=== PATIENT | female | born 1975 | race Caucasian/White ===

== ENCOUNTER 2017-10-27 16:15 | Observation (INO) ==
[2017-10-27] MEDS ORDERED: Nitroglycerin 0.4 MG TAB.SUBL SL ONE (16:23)
[2017-10-27] MEDS ORDERED: Aspirin 81 MG TAB.CHEW PO ONE (16:23)
--- NOTE | 2017-10-27 16:27 | Emergency Department Note ---
Disposition Clinical Impression: Right shoulder pain Disposition: Admitted As Inpatient Condition: Undetermined General Adult HPI - General Chief complaint: ED Back Pain/Injury Stated complaint: Shoulder blade pain Time Seen by Provider: 10/27/17 16:19 - History of Present Illness Pain Scale: 7 - Related Data Home Medications Medication Instructions Recorded Confirmed Cholecalciferol (Vitamin D3) 4,000 unit PO DAILY 02/13/15 10/27/17 [Vitamin D3] Aspirin Enteric Coated [Aspirin EC] 81 mg PO DAILY 09/23/15 10/27/17 SUMAtriptan Succinate [Imitrex] 100 mg PO Q2H PRN 09/29/15 10/27/17 Temazepam [Restoril] 15 mg PO HS PRN 09/29/15 10/27/17 Nitroglycerin [Nitrostat] 0.4 mg SL Q5M PRN 10/05/16 10/27/17 Potassium Citrate [Urocit-K] 20 meq PO BID 10/05/16 10/27/17 Metoprolol Succinate [Toprol Xl] 50 mg PO DAILY 10/27/17 10/27/17 Sertraline [Zoloft] 100 mg PO DAILY 10/27/17 10/27/17 Tramadol HCl [Ultram] 50 mg PO Q8H PRN 10/27/17 10/27/17 Previous Rx's Medication Instructions Recorded Atorvastatin [Lipitor] 40 mg PO HS #30 tablet 04/30/15 Allergies Allergy/AdvReac Type Severity Reaction Status Date / Time Iodinated Contrast- Oral and Allergy Mild Hives Verified 10/05/16 07:56 IV Dye [Iodinated Contrast Media - IV Dye] povidone-iodine Allergy Mild Hives Verified 10/05/16 07:56 [From Betadine] soap [From Betadine] Allergy Mild Hives Verified 10/05/16 07:56 Macrolide Antibiotics Allergy Unknown unknown Verified 10/05/16 07:56 chlorhexidine Allergy Hives Verified 10/05/16 07:56 [From Hibiclens] iodine AdvReac Mild Gastrointestinal Verified 10/05/16 07:56 Upset Past Medical History - Past Medical History Medical history: Reports: myocardial infarction Surgical history: Reports: angioplasty/stent, , cataract, hysterectomy Psychiatric history: Reports: anxiety, depression - Social History Smoking Status: Never smoker Smokeless Tobacco Status: No Alcohol use: Reports: none Drug use: Reports: none Physical Exam - General General appearance: alert Course Vital Signs Temperature 98.4 F 10/27/17 16:16 Pulse Rate 81 10/27/17 16:16 Respiratory Rate 16 10/27/17 16:16 Blood Pressure 136/87 10/27/17 16:16 O2 Sat by Pulse Oximetry 97 10/27/17 16:16 Temperature 98.4 F 10/27/17 16:20 Pulse Rate 80 10/27/17 16:57 Respiratory Rate 16 10/27/17 18:08 Blood Pressure 110/79 10/27/17 18:08 O2 Sat by Pulse Oximetry 97 10/27/17 16:20 Oxygen Delivery Oxygen Delivery Room Air Medical Decision Making - Lab Data Result diagrams: 10/27/17 16:32 10/27/17 16:32 Lab Results 10/27/17 10/27/17 10/27/17 Range/Units 16:32 16:32 16:32 WBC 8.9 (4.3-11.1) K/mcL RBC 4.86 (3.82-4.97) M/mcL Hgb 14.1 (11.5-15.4) g/dL Hct 42.2 (35.3-44.9) % MCV 86.8 (83.0-100.0) fL MCH 29.0 (28.0-33.3) pg MCHC 33.4 (31.6-35.5) g/dL RDW 13.3 (11.5-14.5) % Plt Count 249 (140-400) K/mcL MPV 9.1 L (9.4-12.4) fL Immature Gran % 0.3 (0-4) % Seg Neutrophils % 64.9 % Lymphocytes % 26.5 % Monocytes % 6.5 % Eosinophils % 1.6 % Basophils % 0.2 % Neutrophils # 5.8 (1.6-8.9) K/mcL Lymphocytes # 2.4 (0.6-4.6) K/mcL Monocytes # 0.6 (0.0-1.3) K/mcL Eosinophils # 0.1 (0.0-0.6) K/mcL Basophils # 0.0 (0.0-0.2) K/mcL PT 10.8 (9.4-12.1) Seconds INR 1.0 APTT 34.1 (26.0-36.0) Seconds Sodium 140 (136-145) mEq/L Potassium 3.8 (3.5-5.1) mEq/L Chloride 107 (98-107) mEq/L Carbon Dioxide 26 (23-29) mEq/L BUN 10 (6-20) mg/dL Creatinine 0.77 (0.60-1.20) mg/dL Est GFR ( Amer) > 60 (> 60) Est GFR (Non-Af Amer) > 60 (> 60) BUN/Creatinine Ratio 13 (6-26) Glucose 107 H (70-105) mg/dL Calculated Osmolality 290 (280-300) Calcium 9.2 (8.6-10.3) mg/dL Troponin I < 0.03 (< 0.04) ng/mL Attestation Statement - Attestation Attestation: I examined this patient and my medical decision-making was reviewed with the Resident Physician. I agree with the documented findings, disposition and treatment plan as described except to the extent set forth below. [id number] time provided Patient arrives complaining of scapular pain similar to when she had a previous myocardial infarction requiring stent deployment. She does not appear to any acute distress upon arrival
--- NOTE | 2017-10-27 16:32 | Emergency Department Note ---
Disposition Clinical Impression: Right shoulder pain Qualifiers: Chronicity: acute Qualified Code(s): M25.511 - Pain in right shoulder Disposition: Admitted As Inpatient Condition: Undetermined Referrals: Greyson Andesron DO [Primary Care Provider] - Forms: ED Satisfaction Letter Time of Disposition: 17:29 General Adult HPI - General Chief complaint: ED Back Pain/Injury Stated complaint: Shoulder blade pain Time Seen by Provider: 10/27/17 16:19 Source: patient Mode of arrival: ambulatory Limitations: no limitations Nursing Notes Reviewed: Yes Vital Signs Reviewed: Yes - History of Present Illness HPI Narrative: 42-year old female with history of PR 2 years ago with complaint of right shoulder pain. The patient states that a few days ago she started experiencing a small amount of right shoulder pain. The patient states this progressively got worse to the point today she is having an extreme amount of right shoulder pain very similar to previous PR. She has associated mild dyspnea as well. The patient states this feels identical to her previous PR. The patient is no longer taking Plavix. The patient is taking her metoprolol as well as statin. The patient denies any history of hemoptysis, unilateral leg swelling, history of DVT or PE, recent surgeries. She is resting comfortably in the room but is very concerned because it is so similar to previous PR. Patient denies any trauma or other injuries causing her complaint. Pain Scale: 7 - Related Data Home Medications Medication Instructions Recorded Confirmed Cholecalciferol (Vitamin D3) 4,000 unit PO DAILY 02/13/15 10/05/16 [Vitamin D3] Metoprolol XL (24 HR) Succ [Toprol 50 mg PO HS 02/13/15 10/05/16 XL] Sertraline [Zoloft] 100 mg PO HS 02/13/15 10/05/16 Aspirin Enteric Coated [Aspirin EC] 81 mg PO DAILY 09/23/15 10/05/16 SUMAtriptan Succinate [Imitrex] 100 mg PO Q2H PRN 09/29/15 10/05/16 Temazepam [Restoril] 15 mg PO HS PRN 09/29/15 10/05/16 Nitroglycerin [Nitrostat] 0.4 mg SL Q5M PRN 10/05/16 10/05/16 Potassium Citrate [Urocit-K] 20 meq PO BID 06/13/17 06/13/17 hydrOXYzine HCl [Hydroxyzine HCl] 25 mg PO Q4-6H PRN 10/05/16 10/05/16 predniSONE [PredniSONE] 40 mg PO DAILY 10/05/16 10/05/16 Previous Rx's Medication Instructions Recorded Atorvastatin [Lipitor] 40 mg PO HS #30 tablet 04/30/15 Allergies Allergy/AdvReac Type Severity Reaction Status Date / Time Iodinated Contrast- Oral and Allergy Mild Hives Verified 10/05/16 07:56 IV Dye [Iodinated Contrast Media - IV Dye] povidone-iodine Allergy Mild Hives Verified 10/05/16 07:56 [From Betadine] soap [From Betadine] Allergy Mild Hives Verified 10/05/16 07:56 Macrolide Antibiotics Allergy Unknown unknown Verified 10/05/16 07:56 chlorhexidine Allergy Hives Verified 10/05/16 07:56 [From Hibiclens] iodine AdvReac Mild Gastrointestinal Verified 10/05/16 07:56 Upset All systems ED: reviewed and negative except as stated. Constitutional: Denies: fever, chills, weakness ENT ED: Denies: congestion Cardiovascular: Denies: chest pain, dyspnea on exertion Respiratory: Reports: dyspnea Gastrointestinal: Denies: abdominal pain, nausea, vomiting, diarrhea, constipation Genitourinary: Denies: urgency, dysuria Musculoskeletal: Reports: arthralgia. Denies: back pain, neck pain, myalgia Integumentary: Denies: rash Neurological: Denies: headache Past Medical History - Past Medical History Attestation: Yes The following information was validated with the patient. Source: patient Medical history: Reports: myocardial infarction Surgical history: Reports: angioplasty/stent, , cataract, hysterectomy Psychiatric history: Reports: anxiety, depression - Social History Smoking Status: Never smoker Smokeless Tobacco Status: No Alcohol use: Reports: none Drug use: Reports: none Physical Exam - General Limitations: no limitations General appearance: alert, in no apparent distress - Head Head exam: atraumatic, normocephalic, normal inspection - Eye Eye exam: Present: normal appearance, PERRL, EOMI - ENT ENT exam: normal exam, normal oropharynx, mucous membranes moist - Neck Neck exam: Present: normal inspection, full ROM, trachea midline - Chest Chest inspection: Present: normal inspection, symmetric chest wall rise - Respiratory Respiratory exam: Present: normal lung sounds bilaterally - Cardiovascular Cardiovascular exam: Present: regular rate, normal rhythm, normal heart sounds - Abdominal Exam Abdominal exam: Present: soft, Non-Tender. Absent: tenderness, distention, guarding, rebound, rigidity - Extremities Exam Extremities exam: Present: normal inspection, full ROM. Absent: tenderness, pedal edema - Neurological Exam Neurological exam: Present: alert, oriented X3 - Skin Skin exam: Present: warm, dry, intact, normal color Course Vital Signs Temperature 98.4 F 10/27/17 16:16 Pulse Rate 81 10/27/17 16:16 Respiratory Rate 16 10/27/17 16:16 Blood Pressure 136/87 10/27/17 16:16 O2 Sat by Pulse Oximetry 97 10/27/17 16:16 Temperature 98.4 F 10/27/17 16:20 Pulse Rate 80 10/27/17 16:57 Respiratory Rate 16 10/27/17 16:20 Blood Pressure 105/76 10/27/17 16:57 O2 Sat by Pulse Oximetry 97 10/27/17 16:20 Oxygen Delivery Oxygen Delivery Room Air Medical Decision Making - MDM Narrative Medical decision making narrative: Patient's workup in the emergency department given streets no acute findings. Given the patient's symptoms and relief with nitroglycerin combined with the symptoms being so similar to her previous PR, we will admit the patient to the hospital at this time for ACS rule out and further trending of troponin and workup. Patient made aware and agrees to plan. No further questions or concerns noted at this time. Accepted by Dr. Peterson. - Medical Records Medical records reviewed: Yes I reviewed the patient's medical records. - Lab Data Lab results reviewed: Yes I reviewed the patient's lab results. Result diagrams: 10/27/17 16:32 10/27/17 16:32 Lab Results 10/27/17 10/27/17 10/27/17 Range/Units 16:32 16:32 16:32 WBC 8.9 (4.3-11.1) K/mcL RBC 4.86 (3.82-4.97) M/mcL Hgb 14.1 (11.5-15.4) g/dL Hct 42.2 (35.3-44.9) % MCV 86.8 (83.0-100.0) fL MCH 29.0 (28.0-33.3) pg MCHC 33.4 (31.6-35.5) g/dL RDW 13.3 (11.5-14.5) % Plt Count 249 (140-400) K/mcL MPV 9.1 L (9.4-12.4) fL Immature Gran % 0.3 (0-4) % Seg Neutrophils % 64.9 % Lymphocytes % 26.5 % Monocytes % 6.5 % Eosinophils % 1.6 % Basophils % 0.2 % Neutrophils # 5.8 (1.6-8.9) K/mcL Lymphocytes # 2.4 (0.6-4.6) K/mcL Monocytes # 0.6 (0.0-1.3) K/mcL Eosinophils # 0.1 (0.0-0.6) K/mcL Basophils # 0.0 (0.0-0.2) K/mcL PT 10.8 (9.4-12.1) Seconds INR 1.0 APTT 34.1 (26.0-36.0) Seconds Sodium 140 (136-145) mEq/L Potassium 3.8 (3.5-5.1) mEq/L Chloride 107 (98-107) mEq/L Carbon Dioxide 26 (23-29) mEq/L BUN 10 (6-20) mg/dL Creatinine 0.77 (0.60-1.20) mg/dL Est GFR ( Amer) > 60 (> 60) Est GFR (Non-Af Amer) > 60 (> 60) BUN/Creatinine Ratio 13 (6-26) Glucose 107 H (70-105) mg/dL Calculated Osmolality 290 (280-300) Calcium 9.2 (8.6-10.3) mg/dL Troponin I < 0.03 (< 0.04) ng/mL - Radiology Data Radiology results reviewed: Yes I reviewed the patient's radiology results. Chest X-Ray 10/27/17 16:23 IMPRESSION: Minimal bibasilar atelectasis. Lungs are otherwise clear. D/ / Manav Macias MD / Manav Macias MD Interpreting Provider: Manav Macias MD - EKG Data EKG #1 EKG attestation: Yes I reviewed and interpreted this EKG. EKG results narrative: Heart rate 81 beats for minute. Normal sinus rhythm. No ST elevation but there is mild ST depression noted in V2, V3, V4, V5, V6. This is not new and on previous EKG from 06/22/2016. No other acute changes noted.
[2017-10-27 16:47] LABS: Basophils % 0.2 %; Eosinophils # 0.1 K/mcL (0.0-0.6); Eosinophils % 1.6 %; Hematocrit 42.2 % (35.3-44.9); Hemoglobin 14.1 g/dL (11.5-15.4); Immature Granulocytes % 0.3 % (0-4); Lymphocytes # 2.4 K/mcL (0.6-4.6); Lymphocytes % 26.5 %; Mean Corpuscular HGB Conc 33.4 g/dL (31.6-35.5); Mean Corpuscular Volume 86.8 fL (83.0-100.0); Mean Platelet Volume 9.1 fL (9.4-12.4); Monocytes # 0.6 K/mcL (0.0-1.3); Monocytes % 6.5 %; Neutrophils # 5.8 K/mcL (1.6-8.9); Platelet Count 249 K/mcL (140-400); Red Blood Count 4.86 M/mcL (3.82-4.97); Red Cell Distribution Width 13.3 % (11.5-14.5); Segmented Neutrophils % 64.9 %
[2017-10-27 16:54] LABS: Prothrombin Time 10.8 Seconds (9.4-12.1)
[2017-10-27 16:57] LABS: Activated Partial Thrombo Time 34.1 Seconds (26.0-36.0)
[2017-10-27 17:10] LABS: Troponin I < 0.03 ng/mL (< 0.04)
[2017-10-27 17:16] LABS: BUN/Creatinine Ratio 13 (6-26); Blood Urea Nitrogen 10 mg/dL (6-20); Calcium 9.2 mg/dL (8.6-10.3); Carbon Dioxide 26 mEq/L (23-29); Chloride 107 mEq/L (98-107); Glucose 107 mg/dL (70-105); Osmolality,Calculated 290 (280-300); Potassium 3.8 mEq/L (3.5-5.1); Sodium 140 mEq/L (136-145); eGFR For African Americans > 60 (> 60); eGFR For Non-African Americans > 60 (> 60)
--- NOTE | 2017-10-27 17:42 | Internal Med History&Physical ---
Date of Encounter: 10/27/17 Time of Encounter: 17:42 Internal Medicine - H&P: HPI Chief complaint: CP History of present illness: Ms. Byrne is a 42 year old female with history of AL 2 years ago with complaint of right shoulder pain. The patient states that a few days ago she started experiencing a small amount of right shoulder pain. The patient states this progressively got worse to the point today she is having an extreme amount of right shoulder pain very similar to previous AL. She has associated mild dyspnea as well. The patient states this feels identical to her previous AL. The patient is no longer taking Plavix. Past Med Surg Social Fam HX - Past Medical History Medical history: myocardial infarction Additional medical history: Anemia, irregular heart beat Psychiatric history: anxiety, depression - Past Surgical History Surgical History: angioplasty/stent, , cataract, hysterectomy Additional surgical history: [facility] angioplasty with stent 04/28/2015, cyst removed, tubal ligation, x 2, cystoscopy, D&C, endometrial ablation, hymenectomy, vaginal cuff granulation tissue resection, - Social History Smoking Status: Never smoker Smokeless Tobacco Status: No Alcohol use: none Drug use: none - Family History Grandmother Hx Family Cardiac Disorders: Yes Hx Family Respiratory Disorders: No Hx Family Cancer: Yes (Liver) Hx Family GI Disorders: No Hx Family Endocrine Disorder: Yes (Mother) Hx Family Neuromuscular Disorders: No Hx Family Neurologic Disorders: No Hx Family HEENT Disorders: No Hx Family Autoimmune Disorders: Yes (Lupas) Sister Age: 46 Living Status: Still Living Hx Family Cardiac Disorders: Yes (AL) Internal Medicine - H&P: Meds Cholecalciferol (Vitamin D3) [Vitamin D3] 4,000 unit PO DAILY 02/13/15 [History] Atorvastatin [Lipitor] 40 mg PO HS #30 tablet 04/30/15 [Rx] Aspirin Enteric Coated [Aspirin EC] 81 mg PO DAILY 09/23/15 [History] SUMAtriptan Succinate [Imitrex] 100 mg PO Q2H PRN 09/29/15 [History] Temazepam [Restoril] 15 mg PO HS PRN 09/29/15 [History] Nitroglycerin [Nitrostat] 0.4 mg SL Q5M PRN 10/05/16 [History] Potassium Citrate [Urocit-K] 20 meq PO BID 10/05/16 [History] Metoprolol Succinate [Toprol Xl] 50 mg PO DAILY 10/27/17 [History] Sertraline [Zoloft] 100 mg PO DAILY 10/27/17 [History] Tramadol HCl [Ultram] 50 mg PO Q8H PRN 10/27/17 [History] 3 Allergy/AdvReac Type Severity Reaction Status Date / Time Iodinated Contrast- Oral and Allergy Mild Hives Verified 10/05/16 07:56 IV Dye [Iodinated Contrast Media - IV Dye] povidone-iodine Allergy Mild Hives Verified 10/05/16 07:56 [From Betadine] soap [From Betadine] Allergy Mild Hives Verified 10/05/16 07:56 Macrolide Antibiotics Allergy Unknown unknown Verified 10/05/16 07:56 chlorhexidine Allergy Hives Verified 10/05/16 07:56 [From Hibiclens] iodine AdvReac Mild Gastrointestinal Verified 10/05/16 07:56 Upset All Systems PM: A 10-system review of systems was performed and is negative for pertinent findings except as documented above in the HPI. - Constitutional Vitals: Temp Pulse Resp BP Pulse Ox 98.4 F 80 16 105/76 97 10/27/17 16:20 10/27/17 16:57 10/27/17 16:20 10/27/17 16:57 10/27/17 16:20 Internal Med - H&P Results - Labs CBC & Chem 7: 10/27/17 16:32 10/27/17 16:32 - Assessment and plan (1) Chest pain Current Visit: Yes Status: Acute Assessment and plan: ASSESSMENT: - Chest pain due to DD *CAD *Muskuloskeletal CP - myofascial strain, costochondritis *GERD *Esophageal spasm PLAN: - cardiac enzymes x 2 q 8 hr - EKG now and in AM - ASA - O2 by NC to keep SpO2 greater than 92% - UA - Urine toxic screen - CBCD, BMP in AM - Fasting lipids - Morphine 2 mg IV q 2-4 hr PRN chest pain - Tylenol 650 mg PO q 4-6 hr PRN headache - Home meds (check list) - Heparin 5000 U SQ BID - 2D Echo - Cardiology consult (2) Myocardial infarct, old Current Visit: Yes Status: Acute (3) Hyperlipidemia Current Visit: Yes Status: Acute - Time Spent With Patient Total time spent is greater than 50% in coordination of care (as documented) at patient's floor/unit and/or counseling patient:
[2017-10-27] MEDS ORDERED: SUMAtriptan succinate 50 MG TABLET PO PRN (20:53)
[2017-10-27] MEDS ORDERED: Nitroglycerin 0.4 MG TAB.SUBL SL PRN (20:53)
[2017-10-27] MEDS ORDERED: Naloxone 0.4 MG/ML INJ IVP PRN (20:54)
[2017-10-27 21:58] LABS: Prothrombin Time 11.6 Seconds (9.4-12.1)
[2017-10-27 22:00] LABS: Activated Partial Thrombo Time 32.4 Seconds (26.0-36.0)
[2017-10-27] MEDS: Potassium Citrate 10 MEQ TABLET.ER PO SCH (22:08)
[2017-10-27] MEDS: traMADol 50 MG TABLET PO PRN (22:09)
[2017-10-27] MEDS: Temazepam 15 MG CAPSULE PO PRN (22:09)
[2017-10-27] MEDS ORDERED: Ondansetron 4 MG/2 ML VIAL IVP PRN (23:47)
[2017-10-28] MEDS ORDERED: Acetaminophen 325 MG TABLET PO PRN (00:23)
[2017-10-28 03:37] LABS: Hematocrit 37.8 % (35.3-44.9); Hemoglobin 12.6 g/dL (11.5-15.4); Immature Platelets 1.5 % (1.1-6.1); Mean Corpuscular HGB Conc 33.3 g/dL (31.6-35.5); Mean Corpuscular Hemoglobin 28.5 pg (28.0-33.3); Mean Corpuscular Volume 85.5 fL (83.0-100.0); Mean Platelet Volume 9.2 fL (9.4-12.4); Red Blood Count 4.42 M/mcL (3.82-4.97); Red Cell Distribution Width 13.4 % (11.5-14.5)
[2017-10-28 03:58] LABS: Alanine Aminotransferase 45 Units/L (7-52); Alkaline Phosphatase 83 Units/L (34-104); Aspartate Amino Transferase 27 Units/L (13-39); BUN/Creatinine Ratio 16 (6-26); Bilirubin,Total 0.5 mg/dL (0.3-1.0); Blood Urea Nitrogen 11 mg/dL (6-20); Calcium 8.9 mg/dL (8.6-10.3); Carbon Dioxide 28 mEq/L (23-29); Chloride 108 mEq/L (98-107); Glucose 106 mg/dL (70-105); Magnesium 1.9 mg/dL (1.6-2.6); Osmolality,Calculated 288 (280-300); Phosphorous 2.8 mg/dL (2.7-4.5); Potassium 3.7 mEq/L (3.5-5.1); Sodium 139 mEq/L (136-145); Total Protein 6.3 g/dL (6.4-8.9); eGFR For African Americans > 60 (> 60); eGFR For Non-African Americans > 60 (> 60)
[2017-10-28 03:59] LABS: Albumin/Globulin Ratio 1.7 (1.1-2.2); Chol/HDL Ratio 3.4 (0-4.9); Cholesterol 116 mg/dL (< 200); Globulin 2.3 g/dL (2.4-3.5); HDL Cholesterol 34 mg/dL (40-59); LDL Cholesterol,Calculated 61 mg/dL (0-99); Triglycerides 104 mg/dL (< 150)
[2017-10-28] MEDS: *HR* Heparin 5,000 UNIT/ML VIAL SQ SCH ×2 (05:19→21:37)
[2017-10-28 05:56] LABS: Bilirubin,Urine Negative (Negative); Blood,Urine Negative (Negative); Clarity,Urine Clear (Clear); Color,Urine Yellow (Yellow); Glucose,Urine (UA) Normal (Normal); Ketones,Urine Negative (Negative); Leukocyte Esterase,Urine Negative (Negative); Nitrite,Urine Negative (Negative); Protein,Urine Negative (Neg-Trace); Specific Gravity,Urine 1.022 (1.010-1.025); Urobilinogen,Urine Normal (Normal)
[2017-10-28] MEDS ORDERED: Cholecalciferol (D-3) 1,000 UNIT TABLET PO SCH (09:00)
[2017-10-28] MEDS ORDERED: Aspirin Enteric Coated 81 MG Tablet PO SCH (09:00)
[2017-10-28] MEDS ORDERED: Metoprolol XL (24 HR) Succ 50 MG TAB.ER.24H PO SCH (09:00)
[2017-10-28] MEDS ORDERED: Regadenoson 0.4 MG/5 ML SYRINGE IVP ONE (09:03)
[2017-10-28] MEDS: Potassium Citrate 10 MEQ TABLET.ER PO SCH ×2 (12:05→21:36)
[2017-10-28] MEDS ORDERED: *HR* Ticagrelor 90 MG TABLET PO ONE (16:45)
--- NOTE | 2017-10-28 17:21 | Electrocardiograph Report ---
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
[2017-10-28] MEDS: 0.9 % Sodium Chloride 1,000 ML IVC SCH (18:09)
--- NOTE | 2017-10-28 18:36 | Internal Med Progress Note ---
Date of Encounter: 10/28/17 Time of Encounter: 09:15 - Assessment and plan (1) Chest pain Current Visit: Yes Status: Acute Assessment and plan: Patient with right posterior shoulder pain. Today she reports that 2/10 worse with movement and inspiration. There is no sign of injury, bruising, is nontender to palpation. She denies nausea, vomiting, shortness of breath. She reports that the pain is similar to the pain that she had in the weeks leading up to her prior [place]. April, patient had LHC with PTCA/KT in OM. Patient is still taking statin, beta meagan, aspirin. Echocardiogram today shows a preserved EF, no significant valvular dysfunction. Troponins negative. Nuclear stress test today was nondiagnostic for ischemia due to baseline ST changes. Gated EF of 71%. There is a small sized, mild intensity, reversible inferolateral defect suggestive of ischemia noted on stress test today. Cardiology has been consulted. I appreciate their recommendations and consultation. Continue telemetry Cardiology consulted Continue ASA, statin, BB. Qualifiers: Chest pain type: unspecified Qualified Code(s): R07.9 - Chest pain, unspecified (2) Myocardial infarct, old Current Visit: Yes Status: Chronic Assessment and plan: Prior history. (3) Hyperlipidemia Current Visit: Yes Status: Chronic Assessment and plan: Chronic. Continue statin. Qualifiers: Hyperlipidemia type: unspecified Qualified Code(s): E78.5 - Hyperlipidemia , unspecified - Time Spent With Patient Total time spent is greater than 50% in coordination of care (as documented) at patient's floor/unit and/or counseling patient: less than 15 minutes - Subjective Interval history: Patient was seen and assessed at bedside this morning at 9:10 AM. Her was at bedside as well. Patient reports 2/10 chest pain that is worse with movement inspiration. She reports that this is the same chest pain that she had in the weeks leading up to her prior [place]. She denies any nausea, vomiting, diaphoresis. Pain is in her right posterior shoulder. There is no tenderness to palpation, she denies any injury. She denies shortness of breath. Patient is aware that her stress test was positive and will see cardiology. - Constitutional Vitals: Temp Pulse Resp BP Pulse Ox 99.1 F 76 16 123/84 93 10/28/17 16:32 10/28/17 16:32 10/28/17 16:32 07/06/18 16:32 10/28/17 16:32 General appearance: Present: cooperative, A&O X 3, pleasant, no acute distress, answers questions appropriately - Head Head exam: Present: atraumatic, normal inspection, normocephalic - Eye Eye exam: Present: EOMI, normal appearance, conjuntiva pink, sclera anicteric. Absent: nystagmus - Neck Neck exam general surgery: Present: normal inspection, supple, trachea midline. Absent: lymphadenopathy, tenderness - Respiratory Respiratory exam: Present: CTAB. Absent: accessory muscle use, chest wall tenderness, decreased breath sounds, rales, rhonchi, wheezes - Cardiovascular Cardiovascular exam: Present: RRR, +S1, +S2. Absent: diastolic murmur, gallop, rubs, systolic murmur - GI/Abdominal GI/Abdominal exam: Present: soft. Absent: distended, hepatomegaly, tenderness - Extremities Exam Extremities exam: Present: normal capillary refill, normal inspection, warm, radial pulses palpable and symmetrical. Absent: calf tenderness, cyanotic, pedal edema, tenderness - Neurological Exam Neurological exam: Present: alert, oriented X3, no focal deficits. Absent: motor sensory deficit, facial droop, speech deficit - Skin Skin exam: Present: dry, intact, normal color, warm. Absent: rash Internal Medicine: Result - Labs CBC & Chem 7: 10/28/17 03:08 10/28/17 03:08 Labs: Short CBC 10/28/17 Range/Units 03:08 WBC 8.2 (4.3-11.1) K/mcL Hgb 12.6 D (11.5-15.4) g/dL Hct 37.8 (35.3-44.9) % Plt Count 243 (140-400) K/mcL BMP 10/28/17 03:08 Sodium 139 Potassium 3.7 Chloride 108 H Carbon Dioxide 28 BUN 11 Creatinine 0.70 Glucose 106 H Calcium 8.9 Cardiac Enzymes 10/27/17 10/28/17 10/28/17 Range/Units 21:20 03:08 09:15 Troponin I < 0.03 < 0.03 < 0.03 (< 0.04) ng/mL Liver Function 10/28/17 Range/Units 03:08 Total Bilirubin 0.5 (0.3-1.0) mg/dL AST 27 (13-39) Units/L ALT 45 (7-52) Units/L Alkaline Phosphatase 83 (34-104) Units/L Albumin 4.0 (3.5-5.7) g/dL Urine 10/28/17 Range/Units 05:40 Urine Color Yellow (Yellow) Urine Clarity Clear (Clear) Urine pH 7.0 (5.0-8.0) pH Units Ur Specific [place] 1.022 (1.010-1.025) Urine Protein Negative (Neg-Trace) mg/dL Urine Glucose (UA) Normal (Normal) mg/dL - ABG Interpretation ABG results: PT/INR, D-dimer PT 11.6 Seconds (9.4-12.1) 10/27/17 21:20 - Impressions Impressions Echocardiogram 10/28/17 21:02 Impressions: LVEF 60-65%. Normal LV chamber size, wall thickness and function. Normal right ventricular structure and function. No evidence of pulmonary hypertension. No significant valvular dysfunction. Left Ventricular Wall Motion: Rest Echo Findings All wall segments showed normal motion. Findings: Study Quality * Technically adequate exam. ECG Findings * Normal sinus rhythm. Left Ventricle * LVEF 60-65%. * Normal LV chamber size, wall thickness and function. Right Ventricle * Normal right ventricular structure and function. Left Atrium * Mildly dilated left atrium. Right Atrium * Normal right atrial size. Aortic Valve * Aortic valve not well visualized. * No aortic regurgitation. * No aortic stenosis. Mitral Valve * Normal mitral valve structure and function. * No mitral regurgitation. * No mitral stenosis. Tricuspid Valve * Normal tricuspid valve structure and function. * Trace tricuspid regurgitation. * No evidence of pulmonary hypertension. Pulmonic Valve * Normal pulmonic valve structure and function. * No pulmonic regurgitation. Aorta * Normally sized aortic root. Pericardium * The pericardium appears normal. IVC * Normal IVC dimensions and inspiratory collapse. Pulmonary Artery * Normal visualized portions of the main pulmonary artery. Consult Discharge Plan - Plan Referrals: Greyson Anderson DO [Primary Care Provider] -
[2017-10-28] MEDS: Temazepam 15 MG CAPSULE PO PRN (21:36)
[2017-10-28] MEDS: traMADol 50 MG TABLET PO PRN (21:36)
[2017-10-28] MEDS ORDERED: methylPREDNISolone 125 MG/2 ML VIAL IVP ONE (23:42)
--- NOTE | 2017-10-28 23:47 | Event Note ---
Date of Encounter: 10/28/17 Time of Encounter: 23:35 Alerted by pts. nurse FELIZ Jaramillo that pt. was scheduled to have LHC in the a.m., however pt. is allergic to IV and oral dye. Contacted Dr. Price who recommended 125 mg IVP Solu-Medrol now and Benadryl dose prior to procedure. Communication order placed instructing a.m. team to administer ordered 50 mg IVP Benadryl prior to LHC.
[2017-10-29] MEDS: 0.9 % Sodium Chloride 1,000 ML IVC SCH (04:46)
[2017-10-29 06:03] LABS: Hematocrit 42.1 % (35.3-44.9); Hemoglobin 14.3 g/dL (11.5-15.4); Immature Granulocytes % 0.4 % (0-4); Lymphocytes % 7.2 %; Mean Corpuscular Volume 85.4 fL (83.0-100.0); Mean Platelet Volume 9.3 fL (9.4-12.4); Monocytes % 0.6 %; Platelet Count 247 K/mcL (140-400); Red Blood Count 4.93 M/mcL (3.82-4.97); Red Cell Distribution Width 13.2 % (11.5-14.5); Segmented Neutrophils % 91.7 %
[2017-10-29 06:04] LABS: Basophils % 0.1 %; Lymphocytes # 0.7 K/mcL (0.6-4.6); Monocytes # 0.1 K/mcL (0.0-1.3)
[2017-10-29 06:22] LABS: BUN/Creatinine Ratio 15 (6-26); Blood Urea Nitrogen 12 mg/dL (6-20); Calcium 9.4 mg/dL (8.6-10.3); Carbon Dioxide 22 mEq/L (23-29); Chloride 106 mEq/L (98-107); Glucose 152 mg/dL (70-105); Osmolality,Calculated 287 (280-300); Potassium 3.8 mEq/L (3.5-5.1); Sodium 137 mEq/L (136-145); eGFR For African Americans > 60 (> 60); eGFR For Non-African Americans > 60 (> 60)
[2017-10-29] MEDS: *HR* Heparin 5,000 UNIT/ML VIAL SQ SCH (06:44)
[2017-10-29] MEDS ORDERED: 0.9 % Sodium Chloride 1,000 ML ONE ×2 (08:36→09:09)
[2017-10-29] MEDS ORDERED: Heparin 1,000 UNITS/500 mL 500 ML ONE (08:36)
[2017-10-29] MEDS ORDERED: ISOVUE-370 200 ML INFUS..BTL IV ONE ×2 (08:37→09:42)
[2017-10-29] MEDS ORDERED: Nitroglycerin 1,000 MCG/10 ML VIAL IV ONE (08:37)
[2017-10-29] MEDS ORDERED: *HR* Heparin 10,000 UNIT/10 ML VIAL ONE (08:37)
[2017-10-29] MEDS ORDERED: Aspirin 81 MG TAB.CHEW PO SCH (09:00)
[2017-10-29] MEDS ORDERED: *HR* Bivalirudin 250 MG VIAL IVC ONE (09:08)
[2017-10-29] MEDS ORDERED: *HR* Midazolam HCl 2 MG/2 ML VIAL ONE ×2 (09:09→09:37)
--- NOTE | 2017-10-29 09:19 | Pre-Sedation Evaluation ---
Pre-sedation evaluation - Pre-sedation checklist Date of procedure: 10/29/17 Procedure: left heart cath Recent Vitals: Last Vital Signs Temp 98.5 F 10/29/17 06:40 Pulse 74 10/29/17 06:40 Resp 15 10/29/17 06:40 BP 103/67 10/29/17 06:40 Pulse Ox 97 10/29/17 06:40 H&P (including ROS) documented in medical record: No Previous reaction to sedatives/anesthetics: No Dietary Status: NPO after Midnight Airway Assessment: Patient can open mouth completely, TMJ function normal Dentition: No loose teeth or bridges Possible difficult airway: No ASA Classification *see protocol: CLASS III-Severe systemic disease Plan of Care: Pt appropriate candidate for procedure/moderate/conscious sedation , Risks/benefits of procedure/sedation discussed w/ patient/family, If not NPO; Risk of intake outweiged by necessity to perform procedure Cardiac Registry (Cardio Only) - Functional Capacity Functional Capacity: >=4 METS without symptoms - Clincal Frailty Scale Clinical Frailty Scale: Well
[2017-10-29] MEDS ORDERED: 0.9 % Sodium Chloride 1,000 ML IVC SCH (10:15)
--- NOTE | 2017-10-29 10:18 | Invasive Diagnostic Lab Proc ---
Name: Pam Byrne Date of Study: 10/29/2017 Date: 1975 Ht: 66.9in Medical Record#: [id number] Age: 42 Wt: 196.21lb Gender: Female BSA: 2. Order #: [id number] BMI: 30.8 Physicians Procedure Physician: Mario Alberto Price DO Referring MD: Greyson Anderson DO Referring MD: Staff Name Position Time In Reid Bustillo RN Monitor 09:03 AM Génesis Hicks RN Electric Organ Inspector And Repairer 09:03 AM Eulalia Diallo RT (R) Scrub 09:03 AM Indications Indication Abnormal Test - Stress Procedures Performed Procedure L HRT ARTERY/VENTRICLE ANGIO Pre-Procedure Checklist Informed consent is complete signed and on chart. H&P is on chart. ID band is on and ID verified with patient. Patient NPO for procedure The procedure was described for the patient and questions were answered. Blood Pressure: 117/76 ECG is on chart. Rhythm: NSR Plan of Care Patient will tolerate the procedure without complications. Adequate level of comfort will be maintained. Hemodynamics will remain stable Patient will recover from procedure without complications. Respiratory function will be maintained. Cardiac rhythm will remain stable. Patient temperature will be maintained. Patient and/or family have verbalized understanding of the procedure. Patient Education Chief Complaint/Reason for Test: Cardiac Cath Developmental Category: Adult (18-64 years) Developmentally Appropriate for Age: Yes Learning Barriers: None Education Needs: Procedure Education Method: Verbal Information Taught: Cardiac Cath Educational Evaluation: Able to repeat information Intravenous Access Time IV Size Location DC'd Fluid/Drip Rate Units RN 20g 1 /" Patent On Arrival Rt Antecubital 0.9NaCl 25 ml/hr Reid Bustillo RN Allergies Iodinated Contrast Media - IV Dye Macrolide Antibiotics iodine soap penicillin V povidone-iodine BETADINE, ERYTHROMYCIN, AMPICILLIN Macrolide (Erythromycin-Related) Penicillin Erythromycin Ampicillin Povidone Iodine Iodinated Contrast- Oral and IV Dye Iodinated Contrast Media - Oral and EES BETADINE AMP Vital Signs Time BP (mmHg) HR (bpm) O2 Sat. RR (bpm) LOC 09:14 AM 117 / 76 80 98 % 16 5 = Fully awake and oriented or at pre-proc level 09:14 AM / % 4 = Oriented but drowsy 09:29 AM / % 4 = Oriented but drowsy 09:16 AM 117 / 76 78 96 % 09:20 AM 127 / 78 76 99 % 09:25 AM 126 / 68 80 97 % 09:30 AM 122 / 73 83 95 % 09:35 AM 125 / 75 96 96 % 09:40 AM 125 / 74 89 96 % 09:46 AM 124 / 79 84 96 % 09:50 AM 126 / 78 85 95 % 09:44 AM / % 4 = Oriented but drowsy Procedural Medications Time Medication Dose Units Method Given By 09:13 AM Oxygen 2 L/min nasal cannula Génesis Hicks RN 09:35 AM Lidocaine 2% 10 ml Subcutaneous Mario Alberto Price DO 09:37 AM Versed 1 mg Intravenous Génesis Hicks RN 09:25 AM Versed 2 mg Intravenous Génesis Hicks RN 09:39 AM Versed 1 mg Intravenous Génesis Hicks RN 09:43 AM Lidocaine 2% 6 ml Subcutaneous Mario Alberto Price DO 09:44 AM Lidocaine 2% 2 ml Subcutaneous Mario Alberto Price DO ASA Classification: CLASS III- Severe systemic disease (i.e. prior AMI, diabetes with vascular complications, morbid obesity) Gama Score Preprocedure Postprocedure Activity 2- Moves 4 extremities sustained head lift Activity Circulation 2- SBP +/= 20 points of pre-anesthetic level Circulation Consciousness 2- Awake and alert oriented x 3 Consciousness O2 Saturation 2- Able to maintain O2 satruation of 92% on room air O2 Saturation Respiratory 2- Able to deep breathe and cough well Respiratory Total Score 10 Total Score Contrast Agent: Isovue Diagnostic Contrast: 45 ml Total Contrast: 45 ml Fluoro Dose: 3437 mGy Procedure Log Time Note Enter By 08:25 AM CathStat 09:03 AM Pt arrived to labor conciliator 2 at 09:03 [facility] 09:03 AM Reid Bustillo RN Position: Monitor [facility]: 09:03 [email or web address] AM Génesis Hicks RN Position: Electric Organ Inspector And Repairer Time in: 09:03 gillian 09:03 AM Eulalia Diallo RT (R) Position: Scrub Time in: 09:03 [facility] 09:03 AM Patient charges- Angio tray pack, Navilyst 3mm J, Pulse Oximetry and ACIST tubing and transducer [facility] 09:13 AM Case Start 09:13 AM Procedure start 09:13 [facility] 09:13 AM Physician arrived 09:13 [facility] 09:13 AM Meet and greet completed csmith :13 AM Time: 09:13 Oxygen on at 2 L/min per nasal cannula by Génesis Hicks RN [facility] 09:14 AM Time: 09:14 Patient comfortable and pain free: Yes [facility] :14 AM Time: 09:14LOC: 5 = Fully awake and oriented or at pre-proc level csmith 09:14 AM Vitals capture started with the following parameters, Patient=Adult, Interval=5 min, Initial Wseqqoev=318 mmHg, Deflation Rate=5 mmHg, Cuff placed on Right Arm 09:16 AM HR=78 bpm, LGWF=431/76 mmhg, SpO2=96.0 %, Comment=sr 09:17 AM Recorded ECG: HR=73 Condition=Condition 1 09:20 AM HR=76 bpm, UBVO=616/78 mmhg, SpO2=99.0 %, Comment=sr 09:25 AM Pressure channel 2 zeroed. 09:25 AM HR=80 bpm, KBNL=875/68 mmhg, SpO2=97.0 %, Comment=sr 09:25 AM Time: 09:25 Versed 2 mg Intravenous Given by Génesis Hicks RN [facility] 09:26 AM ASA Class CLASS III- Severe systemic disease (i.e. prior AMI, diabetes with vascular complications, morbid obesity) [facility] 09:29 AM Time: :14LOC: 4 = Oriented but drowsy [facility] 09:29 AM Time: 09:14 Patient comfortable and pain free: Yes [facility] 09:30 AM HR=83 bpm, OCTJ=064/73 mmhg, SpO2=95.0 %, Comment=sr 09:34 AM Time out performed according to hospital policy csmith 09:35 AM HR=96 bpm, XQGT=199/75 mmhg, SpO2=96.0 %, Comment=sr 09:37 AM Time: 09:35 10 ml Lidocaine 2% to right groin Subcutaneous Given by Mario Alberto Price DO [facility] 09:37 AM Time: 09:37 Versed 1 mg Intravenous Given by Génesis Hicks RN [facility] 09:39 AM Time: 09:39 Versed 1 mg Intravenous Given by Génesis Hicks RN [facility] 09:40 AM HR=89 bpm, RARW=680/74 mmhg, SpO2=96.0 %, Comment=sr 09:40 AM Micro-Introducer Kit utilized for sheath placement csmith 09:43 AM Time: 09:43 6 ml Lidocaine 2% to right groin Subcutaneous Given by Mario Alberto Price DO csmith 09:44 AM Time: :44 2 ml Lidocaine 2% to right groin Subcutaneous Given by Mario Alberto Price, csmith 09:44 AM Time: 09:29 Patient comfortable and pain free: Yes csmith 09:44 AM Time: 09:29LOC: 4 = Oriented but drowsy csmith 09:44 AM 6Fr FR 4 catheter inserted over the wire DNC csmith 09:44 AM 0.035 145cm Navilyst 3mmJ wire [id number] csmith 09:44 AM Access obtained by percutaneous puncture. 6Fr 11cm Terumo Vincent sheath placed in right Femoral artery. [id number] csmith 09:45 AM Catheter selectively placed in left ventricle csmith 09:45 AM Recorded Pressure: LV, HR=88, Condition=Condition 1 (Left Ventricle) LV 100/8/12 09:45 AM Recorded Pressure: LV, Ao, HR=74, Condition=Condition 1 (Left Ventricle) LV 119/-3/9, (Aorta) Ao 115/68/91 09:45 AM Bolus angiogram of left Ventricle complete: hand injection csmith 09:45 AM RCA angiography performed in multiple views. csmith 09:46 AM HR=84 bpm, MBTF=815/79 mmhg, SpO2=96.0 %, Comment=sr 09:46 AM Catheter removed csmith 09:46 AM 6Fr XB LAD 3.5 [place] Bright-Tip guide catheter was used to cannulate the PCI vessel successfully. reused? No csmith 09:47 AM Recorded Pressure: Ao, HR=84, Condition=Condition 1 (Aorta) Ao 98/60/77 09:48 AM LCA angiography performed in multiple views. csmith 09:48 AM Coronary Dominance: right csmith 09:50 AM Guide catheter removed intact. csmith 09:50 AM Wire removed csmith 09:50 AM HR=85 bpm, ESFR=316/78 mmhg, SpO2=95.0 %, Comment=sr 09:50 AM Procedure completed at 09:50 [facility] AM Did you address RYAN flow and Dominance? [facility] 09:51 AM Sign out completed: Radiation Dose 285 mGy, 3437 cGy/cm2 Fluoro Time: 1.3 Isovue 370 - 200ml contrast 45 ml given by Mario Alberto Price DO. Complications: NoneCardiac Rehab Consult needed: NoConfirmed administered medications: Yes csmith 09:51 AM Isovue 370 - 200ml,1 Bottle(s) used. csmith 09:51 AM Estimated Blood Loss: minimal csmith 09:51 AM Post ECG NSR csmith 09:51 AM Post Blood Pressure 126/78 csmith 09:51 AM 09:51 Post Pulses Bilateral DP 2+ csmith 09:51 AM Information taught Cardiac Cath csmith 09:52 AM Education needs Responsibilities of Patient in Care csmith 09:52 AM Learning barriers :None csmith 09:52 AM Education Methods Verbal csmith 09:52 AM Education evaluation Able to repeat information csmith 09:52 AM Plavix, Effient or Brilinta given No csmith 09:52 AM Family placed in consult room. csmith 09:54 AM Right femoral sheath pulled per Cecil Diallo RT csmith 09:58 AM Report given to Amaris PIPER Pt taken to 3B Room #48. csmith 09:59 AM Time: 09:44LOC: 4 = Oriented but drowsy csmith 09:59 AM Time: 09:44 Patient comfortable and pain free: Yes csmith 10:08 AM Site status No bleeding/hematoma - Rt Groin as reported by Eulalia Diallo RT (R) at 10:08 . Site held for 15 minutes per Eulalia Diallo RT. csmith 10:08 AM Opsite applied csmith 10:08 AM Patient out of room: 10:08 csmith Complications Complication None Hemodynamics Pressures Site Systolic/A Wave Diastolic/V Wave Mean LV 100 8 12 LV 119 -3 9 AO 115 68 91 AO 98 60 77 Post Procedure Information Blood Pressure: 126/78 mmHg Rhythm: NSR Post procedural instructions were given Closure Device Time Device Success/Fail 10/29/2017 9:54:00 AM Manual Compression Successful Site Checks Time Location Status Staff Sheath In? Note 10:08 AM Rt Groin No bleeding/hematoma Eulalia Diallo RT (R) Pulses Time Site Pre-Procedure Post-Procedure Note 10/29/2017 8:27:00 AM Bilateral DP & PT 1+ 10/29/2017 8:27:00 AM Bilateral radial 2+ 9:51:00 AM Bilateral DP 2+ Updated by Reid Bustillo RN on 10/29/2017 10:09:02 AM electronically signed on 10/29/2017 10:09:44 AM with status of Final
--- NOTE | 2017-10-29 12:58 | Event Note ---
Date of Encounter: 10/29/17 Time of Encounter: 12:57 - Cardiology Event Note C report reviewed with patent stents, otherwise arteries angiographically free of disease. CArdiology will sign off and will follow in outpatient setting. Follow up set.
--- NOTE | 2017-10-29 13:21 | Cardiology Consult Note ---
Date of Encounter: 10/28/17 Time of Encounter: 17:30 Assessment and Plan (1) Chest pain of uncertain etiology Current Visit: Yes Status: Acute PT presents with chest pain which she reports is very similar to previous anginal equivalent, positive stress test for reversible ischemia, discussed left heart cath vs. continued medical tx, risks and benefits discussed, my recommendation to proceed with LHC/poss. discussed with pt and at bedside, agreee to proceed, will schedule LHC poss in AM. Start Brillinta loading dose tonight, (2) CAD (coronary artery disease) Current Visit: Yes Status: Chronic Severe single vessel disease, Post ID with KT in OM1 2015, no other significant obstruction, resolution of chest pain following PCI. Qualifiers: Coronary Disease-Associated Artery/Lesion type: [place] artery [place] vs. transplanted heart: [place] heart Associated angina: with unstable angina Qualified Code(s): I25.110 - Atherosclerotic heart disease of [place] coronary artery with unstable angina pectoris (3) Anxiety Current Visit: Yes Status: Chronic Well controlled on current medications. Discussion w patient/family: The assessment and plan as outlined above was discussed with the patient and/or family members who expressed understanding and agreement. All questions were answered. Thank you for involving us in the care of your patient. Please call with any questions. History of Present Illness Consult date: 10/28/17 Consult reason: chest pain Chief complaint: Chest pain History of present illness: Ms. Byrne is a 42 year old female who presest to the ER with complaint of right chest and shoulder pain, onset at rest, 5/10 at most severe, worse with exercise , lasting up to thirty minutes, relieved with rest, associated with mild shortness of breath but no nausea or diaphoresis. Pt reports this chest discomfort is the same she experienced before LHC/stent placement 2015. She is active, most strenuous activity is walking her dog which does not provoke this chest discomfort. She noticed first episode of recurrent chest pain approximately three days ago. She underwent stress imaging which shows reversible ischemia. r r . Past Med Surg Social Fam HX - Past Medical History Medical history: myocardial infarction Additional medical history: Anemia, irregular heart beat Psychiatric history: anxiety, depression - Past Surgical History Surgical History: angioplasty/stent, , cataract, hysterectomy Additional surgical history: [facility] angioplasty with stent 04/28/2015, cyst removed, tubal ligation, x 2, cystoscopy, D&C, endometrial ablation, hymenectomy, vaginal cuff granulation tissue resection, - Social History Smoking Status: Never smoker Smokeless Tobacco Status: No Alcohol use: none Drug use: none - Family History Sister Age: 46 Living Status: Still Living Hx Family Cardiac Disorders: Yes (ID) Grandmother Hx Family Cardiac Disorders: Yes Hx Family Respiratory Disorders: No Hx Family Cancer: Yes (Liver) Hx Family GI Disorders: No Hx Family Endocrine Disorder: Yes (Mother) Hx Family Neuromuscular Disorders: No Hx Family Neurologic Disorders: No Hx Family HEENT Disorders: No Hx Family Autoimmune Disorders: Yes (Lupas) Medications and Allergies Cholecalciferol (Vitamin D3) [Vitamin D3] 4,000 unit PO DAILY 02/13/15 [History] Atorvastatin [Lipitor] 40 mg PO HS #30 tablet 04/30/15 [Rx] Aspirin Enteric Coated [Aspirin EC] 81 mg PO DAILY 09/23/15 [History] SUMAtriptan Succinate [Imitrex] 100 mg PO Q2H PRN 09/29/15 [History] Temazepam [Restoril] 15 mg PO HS PRN 09/29/15 [History] Nitroglycerin [Nitrostat] 0.4 mg SL Q5M PRN 10/05/16 [History] Potassium Citrate [Urocit-K] 20 meq PO BID 10/05/16 [History] Metoprolol Succinate [Toprol Xl] 50 mg PO DAILY 10/27/17 [History] Sertraline [Zoloft] 100 mg PO DAILY 10/27/17 [History] Tramadol HCl [Ultram] 50 mg PO Q8H PRN 10/27/17 [History] 3 Allergy/AdvReac Type Severity Reaction Status Date / Time Iodinated Contrast- Oral and Allergy Mild Hives Verified 10/05/16 07:56 IV Dye [Iodinated Contrast Media - IV Dye] povidone-iodine Allergy Mild Hives Verified 10/05/16 07:56 [From Betadine] soap [From Betadine] Allergy Mild Hives Verified 10/05/16 07:56 Macrolide Antibiotics Allergy Unknown unknown Verified 10/05/16 07:56 chlorhexidine Allergy Hives Verified 10/05/16 07:56 [From Hibiclens] iodine AdvReac Mild Gastrointestinal Verified 10/05/16 07:56 Upset All Systems Review: The remainder of the systems were reviewed and are negative - Constitutional Constitutional: fatigue - Cardiovascular Cardiovascular: chest pain at rest, dyspnea at rest Physical Examination Vital Signs, Last 4 Hours Temp Pulse Resp BP Pulse Ox 10/29/17 12:10 97.8 F 74 18 103/69 93 10/29/17 11:40 97.8 F 72 18 105/68 93 10/29/17 11:10 98.1 F 75 18 103/67 10/29/17 10:55 98.1 F 75 18 103/67 93 10/29/17 10:40 97.6 F 80 18 97/66 91 10/29/17 10:25 98.6 F 82 18 104/68 92 General: Conversant, No Apparent Distress HEENT: Atraumatic Neck: No JVD, Normal carotid pulses Cardiac: Reg Rate and Rhythm, Normal S1 and S2, No Murmur Lungs: Normal Breath Sounds, No Wheeze, Rales, Rhonchi Neuro: Alert and responsive, No focal deficits noted Abdomen: Soft, Non-Tender Skin: No rashes noted on visualized skin Musculoskeletal: No Chest Wall Tenderness Extremities: No Clubbing, No Cyanosis, No Edema, Normal Pulses Results 10/29/17 05:40 10/29/17 05:40 Lab Results 10/28/17 10/29/17 10/29/17 22:13 05:40 05:40 WBC 9.8 Hgb 14.3 D Hct 42.1 Plt Count 247 Sodium 137 Potassium 3.8 Chloride 106 Carbon Dioxide 22 L BUN 12 Creatinine 0.79 Glucose 152 H Calcium 9.4 Troponin I < 0.03 - EKG Interpretation EKG results cardiology: personally reviewed Consult Discharge Plan - Plan Referrals: Greyson Anderson DO [Primary Care Provider] -
--- NOTE | 2017-10-29 15:09 | Discharge Summary ---
- NOTES TO OUTPATIENT PROVIDER Notes to Outpatient Provider: Pt will need new rx for Brilinta Orders not resulted at time of discharge: Pending orders 10/28/17 08:09 NM kavon perf SPECT multi [NM] Routine 10/28/17 21:35 ECG 12 lead ECG [ECG] Stat Date of Encounter: 10/29/17 Time of Encounter: 10:15 - Discharge Diagnosis (1) Chest pain Priority: Primary Status: Acute Assessment and Plan: Pt pain free this a.m. after LHC. April, patient had LHC with PTCA/KT in OM. Patient is still taking statin, beta meagan, aspirin. Echocardiogram today shows a preserved EF, no significant valvular dysfunction. Troponins negative. Nuclear stress test 10/28 was nondiagnostic for ischemia due to baseline ST changes. Gated EF of 71%. There is a small sized, mild intensity, reversible inferolateral defect suggestive of ischemia. LHC this a.m. showed angiographically normal coronary arteries. EF 65%, stent placed from prior procedure first marginal is patent. Continue ASA, statin, BB. Qualifiers: Chest pain type: unspecified Qualified Code(s): R07.9 - Chest pain, unspecified (2) Myocardial infarct, old Priority: Secondary Status: Chronic Assessment and Plan: Prior history. Stent patent. Continue home medications. (3) Hyperlipidemia Priority: Secondary Status: Chronic Assessment and Plan: Chronic. Continue statin. Qualifiers: Hyperlipidemia type: unspecified Qualified Code(s): E78.5 - Hyperlipidemia , unspecified Hospital course: Ms. Byrne is a 42 year old female with past medical history of IN with PTCA and KT, hyperlipidemia. Patient presented with right posterior shoulder pain that mimicked her symptoms prior to her IN in the past. Stress test was positive, patient was taken to [facility] and LHC performed today. Coronary arteries were angiographically normal, there is no further intervention. Patient will continue her normal home medications and follow with cardiology as well as primary care after discharge. Her vitals are stable and within normal limits, patient is stable and appropriate for discharge. Discharge discussed with: patient - Time Spent with Patient Total time spent providing and/or coordinating discharge services: Less than 30 minutes - Discharge Medications Home Medications: Cholecalciferol (Vitamin D3) [Vitamin D3] 4,000 unit PO DAILY 02/13/15 [History] Atorvastatin [Lipitor] 40 mg PO HS #30 tablet 04/30/15 [Rx] Aspirin Enteric Coated [Aspirin EC] 81 mg PO DAILY 09/23/15 [History] SUMAtriptan Succinate [Imitrex] 100 mg PO Q2H PRN 09/29/15 [History] Temazepam [Restoril] 15 mg PO HS PRN 09/29/15 [History] Nitroglycerin [Nitrostat] 0.4 mg SL Q5M PRN 10/05/16 [History] Potassium Citrate [Urocit-K] 20 meq PO BID 10/05/16 [History] Metoprolol Succinate [Toprol Xl] 50 mg PO DAILY 10/27/17 [History] Sertraline [Zoloft] 100 mg PO DAILY 10/27/17 [History] Tramadol HCl [Ultram] 50 mg PO Q8H PRN 10/27/17 [History] Allergies/Adverse Reactions: 3 Allergy/AdvReac Type Severity Reaction Status Date / Time Iodinated Contrast- Oral and Allergy Mild Hives Verified 10/05/16 07:56 IV Dye [Iodinated Contrast Media - IV Dye] povidone-iodine Allergy Mild Hives Verified 10/05/16 07:56 [From Betadine] soap [From Betadine] Allergy Mild Hives Verified 10/05/16 07:56 Macrolide Antibiotics Allergy Unknown unknown Verified 10/05/16 07:56 chlorhexidine Allergy Hives Verified 10/05/16 07:56 [From Hibiclens] iodine AdvReac Mild Gastrointestinal Verified 10/05/16 07:56 Upset Date of admission: 10/27/17 17:37 Primary care physician: Greyson Anderson DO Consults: 10/28/17 15:49 Consult to Cardiology [CONS] Routine Comment: Consulting Provider: [facility] [place] Reason for Consult: positive stress test Time Notified: 15:35 Call Completed: Yes Discharging clinician: Renee Josue Anticipated date of discharge: 10/29/17 - Constitutional Vitals: Temp Pulse Resp BP Pulse Ox 98.2 F 76 18 105/68 96 10/29/17 13:45 10/29/17 13:45 10/29/17 13:45 10/29/17 13:45 10/29/17 13:45 General appearance: Present: cooperative, A&O X 3, pleasant, no acute distress, answers questions appropriately - Head Head exam: Present: atraumatic, normal inspection, normocephalic - Eye Eye exam: Present: normal appearance, conjuntiva pink, sclera anicteric - Neck Neck exam general surgery: Present: supple, trachea midline. Absent: lymphadenopathy, tenderness - Respiratory Respiratory exam: Present: CTAB. Absent: accessory muscle use, chest wall tenderness, rales, respiratory distress, rhonchi, wheezes - Cardiovascular Cardiovascular exam: Present: RRR, +S1, +S2. Absent: diastolic murmur, gallop, rubs, systolic murmur - GI/Abdominal GI/Abdominal exam: Present: normal bowel sounds, soft. Absent: distended, hepatomegaly, tenderness - Extremities Exam Extremities exam: Present: normal capillary refill, normal inspection, warm, radial pulses palpable and symmetrical. Absent: calf tenderness, cyanotic, pedal edema, tenderness - Neurological Exam Neurological exam: Present: alert, oriented X3, no focal deficits. Absent: facial droop, speech deficit - Skin Skin exam: Present: dry, intact, normal color, warm. Absent: rash - Patient Status Disposition: Home, Self-Care Condition: Good Functional capacity at discharge: independent ambulation Overall status at discharge: patient is back to baseline - Discharge Instructions Follow Up With: Greyson Anderson DO [Primary Care Provider] - Additional Instructions: Please follow up with your PCP in the next week to 10 days for a recheck. Please follow up with cardiology as scheduled. Return to your normal activities as tolerated and take your medications as directed. Return to the ER as needed for any other problems or concerns or if your symptoms return or worsen. Follow at low cholesterol, low fat, low sodium diet. - Diet and Activity Activity: resume usual activities as tolerated Diet: low fat, low cholesterol, low salt diet
[2017-10-29 15:42] VITALS: BP 116/78
--- NOTE | 2017-10-31 14:50 | Electrocardiograph Report ---
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
== END 2017-10-29 16:29 | disposition home or self-care (01) ==
LOC: EMEROO 16:15 → 3BNU 16:15
PROVIDERS: ADMIT Internal Medicine Nephrology; ATTEND Internal Medicine Nephrology

== ENCOUNTER 2018-08-05 19:09 | Inpatient (IN) ==
[2018-08-05] MEDS ORDERED: Naloxone 0.4 MG/ML INJ IVP PRN (21:07)
--- NOTE | 2018-08-05 21:21 | Internal Med History&Physical ---
Date of Encounter: 08/06/18 Time of Encounter: 21:19 Internal Medicine - H&P: HPI Chief complaint: Chest Pain History of present illness: Ms. Byrne is a 42 year old female with a significant past medical history of NH status post PCI in 2016 who initially presented to [facility] with complaints of substernal chest pain. Patient reports pressure heaviness in the midchest that started after she had walked approximately a mile. Chest pain described as severe substernal chest pressure radiating to her left arm similar nature to when she had a NH in 2016. 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 Shannon at [facility]. Patient's last cardiac at was on 10/29/2017, which showed her cardiac stent to be patent. While at [facility], patient was given aspirin and 2 sublingual nitroglycerin and 5000 bolus of heparin and placed on a heparin drip. Chest pain eventually improved and subsided. However, while awaiting transfer to [facility], she began complaining of substernal chest pain again; repeat EKG reportedly showed ST segment elevation in leads II, III, and aVF with some reciprocal changes in [address] Schmidt who is on-call for interventional cardiology by Dr. Schmidt and reviewed the EKG and did not feel this was a STEMI. Patient was given brilanta 180 mg po, and morphin 4 mg iv and zfran 4 mg iv. My assessment, patient was complaining of substernal chest pressure. Repeat EKG was performed which showed new possibe Q-wave in lead 3. Vitals otherwise stable. Patient given 4 mg of morphine. We will monitor closely. Past Med Surg Social Fam HX - Past Medical History Medical history: myocardial infarction Additional medical history: Anemia, irregular heart beat Psychiatric history: anxiety, depression - Past Surgical History Surgical History: angioplasty/stent, , cataract, hysterectomy Additional surgical history: [facility] angioplasty with stent 04/28/2015, cyst removed, tubal ligation, x 2, cystoscopy, D&C, endometrial ablation, hymenectomy, vaginal cuff granulation tissue resection, - Social History Smoking Status: Never smoker Smokeless Tobacco Status: No Alcohol use: none Drug use: none - Family History Sister Living Status: Still Living Hx Family Cardiac Disorders: Yes ([place]) Grandmother Hx Family Cardiac Disorders: Yes Hx Family Respiratory Disorders: No Hx Family Cancer: Yes (Liver) Hx Family GI Disorders: No Hx Family Endocrine Disorder: Yes (Mother) Hx Family Neuromuscular Disorders: No Hx Family Neurologic Disorders: No Hx Family HEENT Disorders: No Hx Family Autoimmune Disorders: Yes ([place]) Internal Medicine - H&P: Meds Cholecalciferol (Vitamin D3) [Vitamin D3] 1,000 unit PO DAILY 02/13/15 [History] Atorvastatin [Lipitor] 40 mg PO HS #30 tablet 04/30/15 [Rx] Aspirin Enteric Coated [Aspirin EC] 81 mg PO HS 09/23/15 [History] SUMAtriptan Succinate [Imitrex] 100 mg PO Q2H PRN 09/29/15 [History] Temazepam [Restoril] 15 mg PO HS PRN 09/29/15 [History] Nitroglycerin [Nitrostat] 0.4 mg SL Q5M PRN 10/05/16 [History] Metoprolol Succinate [Toprol Xl] 50 mg PO HS 10/27/17 [History] Sertraline [Zoloft] 100 mg PO HS 10/27/17 [History] Tramadol HCl [Ultram] 50 mg PO Q8H PRN 10/27/17 [History] Cholecalciferol (Vitamin D3) [Vitamin D] 50,000 unit PO QWEEK 08/05/18 [History] Allergy/AdvReac Type Severity Reaction Status Date / Time Iodinated Contrast- Oral and Allergy Mild Hives Verified 10/05/16 07:56 IV Dye [Iodinated Contrast Media - IV Dye] povidone-iodine Allergy Mild Hives Verified 10/05/16 07:56 [From Betadine] soap [From Betadine] Allergy Mild Hives Verified 10/05/16 07:56 Macrolide Antibiotics Allergy Unknown unknown Verified 10/05/16 07:56 chlorhexidine Allergy Hives Verified 10/05/16 07:56 [From Hibiclens] iodine AdvReac Mild Gastrointestinal Verified 10/05/16 07:56 Upset ampicillin AdvReac Gastrointestinal Verified 08/05/18 17:17 Upset Erythromycin Base AdvReac Gastrointestinal Verified 08/05/18 17:17 Upset All Systems PM: A 10-system review of systems was performed and is negative for pertinent findings except as documented above in the HPI. - Constitutional Constitutional: no chills, no fever(s), no night sweats - EENT Eyes: no change in vision, no discharge, no pain, no photophobia Ears: no ear discharge, no ear pain, no tinnitus Nose, mouth and throat: no dysphagia, no nasal discharge, no neck pain, no sore throat - Cardiovascular Cardiovascular ROS IM: no chest pain, no diaphoresis, no dyspnea, no lightheadedness, no palpitations, no syncope - Respiratory Respiratory: no cough, no dyspnea, no wheezing, no excessive phlegm production - Gastrointestinal Gastrointestinal: no abdominal pain, no diarrhea, no hematemesis, no hematochezia, no melena, no nausea, no vomiting - Genitourinary Genitourinary: no change in urinary stream, no dysuria, no flank pain, no hematuria - Musculoskeletal Musculoskeletal ROS IM: no numbness, no tingling - Integumentary Integumentary IM: no rash, no unusual bruising - Neurological Neurological ROS: no confusion, no convulsions, no focal weakness, no numbness, no tingling, no tremor(s) - Hematologic/Lymphatic Hematologic/Lymphatic: no easy bruising - Constitutional Vitals: Temp Pulse Resp BP Pulse Ox 98.9 F 70 20 161/87 97 08/05/18 21:06 08/05/18 21:06 08/05/18 21:06 08/05/18 21:06 08/05/18 21:06 Exam: General: Alert and oriented 3 lying in bed in mild distress secondary to pain Skin:Normal color, no rash, no lesions. HEENT:EOM, pupils equal, round and reactive. Cardiovascular:Normal S1 & S2, no rubs, murmurs or gallops. No JVD. Pulse regular. Lungs:Normal breath sounds, no wheezes or crackles. Abdomen:Soft, non-tender, no rigidity. Extremities:No deformity, no edema or tenderness, no joint swelling or clubbing. Neurological:Normal cognition and motor skills. Pulses:Carotid and radial pulses normal +2. Rest of the physical exam is non contributory Internal Med - H&P Results - Labs CBC & Chem 7: 08/06/18 01:17 08/06/18 01:17 - Assessment and Plan (1) Chest pain Current Visit: No Status: Acute Assessment and plan: Patient presents with substernal chest pain described as pressure-like with radiation to the left arm similar to presentation to patient's previous NH in 2016 concerning for unstable angina. Serial EKGs were performed one of which showing ST segment elevation in leads II, III, and aVF with some reciprocal changes in [address] Schmidt who is on-call for interventional cardiology reviewed the EKG and did not deem it to be a STEMI. Patient received aspirin and 2 sublingual nitroglycerin, loading dose of brilanta 180 mg po and placed on a heparin drip. Patient currently continues to have chest pain related to 3 out of 10. She is somewhat diaphoretic. Repeat EKG showed isolated Q-wave in lead 3. No other ST elevations or T-wave inversions appreciated. Case was discussed with Dr. Schmidt recommending nitro drip for anginal pain. We will obtain troponin stat. -Telemetry -Trend troponin -Morphine as needed -Statin/beta meagan -Echocardiogram -Cardiology consult Qualifiers: Chest pain type: unspecified Qualified Code(s): R07.9 - Chest pain, unspecified (2) CAD (coronary artery disease) Current Visit: No Status: Acute Assessment and plan: History of coronary artery disease status post PCI with stent to [place] in 2016. -Continue medical management with statin and beta meagan. Qualifiers: Associated angina: angina presence unspecified Qualified Code(s): I25.10 - Atherosclerotic heart disease of [place] coronary artery without angina pectoris (3) DVT prophylaxis Current Visit: Yes Status: Acute Assessment and plan: Patient on heparin drip. - Time Spent With Patient Total time spent is greater than 50% in coordination of care (as documented) at patient's floor/unit and/or counseling patient:
[2018-08-05] MEDS ORDERED: Nitroglycerin 0.4 MG TAB.SUBL SL PRN (21:24)
[2018-08-05] MEDS ORDERED: *HR* Heparin 5,000 UNIT/ML VIAL IVP PRN ×2 (21:55)
[2018-08-05] MEDS: *HR* Morphine 2 MG/ML SYRINGE IVP PRN (21:57)
[2018-08-05] MEDS ORDERED: Heparin 25,000 UNIT/250 ML D5W 25,000 UNIT/250 ML IV.SOLN IVC SCH (22:00)
[2018-08-05 22:23] LABS: Hemoglobin 12.9 g/dL (11.5-15.4); Mean Corpuscular HGB Conc 32.3 g/dL (31.6-35.5); Mean Corpuscular Hemoglobin 28.2 pg (28.0-33.3); Mean Corpuscular Volume 87.5 fL (83.0-100.0); Mean Platelet Volume 9.4 fL (9.4-12.4); Platelet Count 245 K/mcL (140-400); Red Blood Count 4.57 M/mcL (3.82-4.97); Red Cell Distribution Width 13.5 % (11.5-14.5)
[2018-08-05 22:30] LABS: Heparin anti-factor XA UFH 0.05 IU/mL (0.30-0.70)
[2018-08-05 22:31] LABS: Prothrombin Time 11.1 Seconds (9.4-12.1)
[2018-08-05] MEDS ORDERED: Ondansetron 4 MG/2 ML VIAL IVP PRN (23:19)
[2018-08-06] MEDS ORDERED: Ondansetron 4 MG/2 ML VIAL IVP SCH
[2018-08-06] MEDS: Metoprolol XL (24 HR) Succ 50 MG TAB.ER.24H PO SCH ×2 (00:20→23:14)
[2018-08-06 02:34] LABS: Basophils % 0.2 %; Eosinophils # 0.2 K/mcL (0.0-0.6); Eosinophils % 1.2 %; Hemoglobin 13.1 g/dL (11.5-15.4); Immature Granulocytes % 0.5 % (0-4); Lymphocytes # 2.5 K/mcL (0.6-4.6); Lymphocytes % 19.7 %; Mean Corpuscular HGB Conc 31.2 g/dL (31.6-35.5); Mean Corpuscular Hemoglobin 27.7 pg (28.0-33.3); Mean Corpuscular Volume 88.8 fL (83.0-100.0); Mean Platelet Volume 9.7 fL (9.4-12.4); Monocytes # 0.9 K/mcL (0.0-1.3); Monocytes % 7.1 %; Neutrophils # 9.2 K/mcL (1.6-8.9); Platelet Count 246 K/mcL (140-400); Red Blood Count 4.73 M/mcL (3.82-4.97); Red Cell Distribution Width 13.5 % (11.5-14.5); Segmented Neutrophils % 71.3 %
[2018-08-06 02:43] LABS: Prothrombin Time 11.5 Seconds (9.4-12.1)
[2018-08-06 02:46] LABS: Activated Partial Thrombo Time 43.8 Seconds (26.0-36.0)
[2018-08-06 02:50] LABS: Alanine Aminotransferase 17 Units/L (7-52); Albumin 3.9 g/dL (3.5-5.7); Albumin/Globulin Ratio 1.4 (1.1-2.2); Alkaline Phosphatase 62 Units/L (34-104); Aspartate Amino Transferase 17 Units/L (13-39); BUN/Creatinine Ratio 11 (6-26); Bilirubin,Total 0.7 mg/dL (0.3-1.0); Blood Urea Nitrogen 7 mg/dL (6-20); Calcium 8.9 mg/dL (8.6-10.3); Carbon Dioxide 23 mEq/L (23-29); Chloride 105 mEq/L (98-107); Globulin 2.7 g/dL (2.4-3.5); Glucose 99 mg/dL (70-105); Osmolality,Calculated 282 (280-300); Potassium 3.4 mEq/L (3.5-5.1); Sodium 137 mEq/L (136-145); Total Protein 6.6 g/dL (6.4-8.9); eGFR For Non-African Americans > 60 (> 60)
[2018-08-06] MEDS: *HR* Morphine 2 MG/ML SYRINGE IVP PRN ×5 (04:26→23:45)
[2018-08-06] MEDS: Nitroglycerin 25 MG/250 ML INFUS..BTL IVC SCH (06:03)
--- NOTE | 2018-08-06 06:18 | Event Note ---
Date of Encounter: 08/06/18 Time of Encounter: 04:30 Was contacted by nurse at 4:15 because compared was complaining of 9 out of 10 chest pain with numbness in both upper extremities. Symptoms started after patient had gotten up to use the bathroom. Repeat EKG was obtained which showed more apparent T-wave inversions in the lateral leads. When I assessed the patient, she was continuing to complain of 9 out of 10 chest pain with numbness in both upper extremities which appeared to be improving. Patient was given sublingual nitroglycerin and morphine. Vitals were otherwise stable. We will start patient on nitro drip and reassess.
[2018-08-06] MEDS: Aspirin 81 MG TAB.CHEW PO SCH (07:52)
[2018-08-06] MEDS ORDERED: predniSONE 20 MG TABLET PO ONE (08:54)
--- NOTE | 2018-08-06 09:25 | Cardiology Consult Note ---
Addendum entered and electronically signed by Hanh Schmidt MD 08/06/18 10:51: I have personally performed a face to face evaluation on this patient. I have reviewed and agree with the care plan. History and Exam by me shows: Pt seen/evaluated. Intermittent chest pain with elevated troponin consistent with nonSTEMI. Will titrate antianginals and plan for LHC tomorrow. Will premed for contrast allergy. If symptoms persist despite OMT, will plan for LHC today. Reviewed prior cath films. May also be coronary vasospasm. Will add diltiazem in addition to nitrates. Pt nonsmoker. Original Note: Date of Encounter: 08/06/18 Time of Encounter: 08:30 Assessment and Plan (1) NSTEMI (non-ST elevated myocardial infarction) Current Visit: Yes Status: Acute Per cardiology: -Troponins negative, 0.19, 1.64. -Admitted with typical anginal symptoms. -On asa, statin, BB, heparin drip, nitro drip. -ECG with T wave inversions noted in inferior and anterolateral leads. -Admits to current chest pain 07/02. -LHC 10/2017 with patent stent, otherwise angiographically free of disease. -TTE 10/2017 with LVEF preserved, no wall motion abnormalities. -TTE pending. -Recommend titration of nitro drip for chest pain. -Has IVP dye allergy, will start pre-treatment. -Will load with plavix. -If chest pain free, plan for LHC Tuesday. If chest pain despite nitro titration, plan for LHC today. Risks versus benefits of LHC explained to patient, who states understanding and agreeable to proceed. (2) Chest pain Current Visit: No Status: Acute Per cardiology: -Admitted with typical angina. -Concern for vasospams also. -Will start cardizem. Qualifiers: Chest pain type: unspecified Qualified Code(s): R07.9 - Chest pain, unspecified Discussion w patient/family: The assessment and plan as outlined above was discussed with the patient who expressed understanding and agreement. All questions were answered. Thank you for involving us in the care of your patient. Please call with any questions. Discussed and reviewed with Dr.Jennifer Schmidt History of Present Illness Consult date: 08/06/18 Requesting physician: Darshan Rodriguez Consult reason: NSTEMI Chief complaint: chest pain History of present illness: Ms. Byrne is a 42 year old female with a relevant past medical history of [place], CAD s/p PCI, anxiety, depression, HLD, HTN, migraines, who presented to [facility] with complaints of chest pain. Pateint states pain started yesterday while taking a walk. Patient states pain radiated down both arms. Patient states she took nitro at home with minimal relief so she sought treatment. Patient states pain was relieved prior to being transferred to [facility], however had recurrence of pain this morning and was started on nitro drip. Patient states current chest pain 3/10, decreased from earlier. Past Med Surg Social Fam HX - Past Medical History Attestation: Yes The following information was validated with the patient. Source: patient, old records reviewed Medical history: coronary artery disease, hyperlipidemia, hypertension, myocardial infarction Additional medical history: Anemia, irregular heart beat Psychiatric history: anxiety, depression - Past Surgical History Surgical History: angioplasty/stent, , cataract, hysterectomy Additional surgical history: [facility] angioplasty with stent 04/28/2015, cyst removed, tubal ligation, x 2, cystoscopy, D&C, endometrial ablation, hymenectomy, vaginal cuff granulation tissue resection, - Social History Smoking Status: Never smoker Smokeless Tobacco Status: No Alcohol use: none Drug use: none - Family History Sister Living Status: Still Living Hx Family Cardiac Disorders: Yes ([place]) Grandmother Hx Family Cardiac Disorders: Yes Hx Family Respiratory Disorders: No Hx Family Cancer: Yes (Liver) Hx Family GI Disorders: No Hx Family Endocrine Disorder: Yes (Mother) Hx Family Neuromuscular Disorders: No Hx Family Neurologic Disorders: No Hx Family HEENT Disorders: No Hx Family Autoimmune Disorders: Yes ([place]) Medications and Allergies Cholecalciferol (Vitamin D3) [Vitamin D3] 1,000 unit PO DAILY 02/13/15 [History] Atorvastatin [Lipitor] 40 mg PO HS #30 tablet 04/30/15 [Rx] Aspirin Enteric Coated [Aspirin EC] 81 mg PO HS 09/23/15 [History] SUMAtriptan Succinate [Imitrex] 100 mg PO Q2H PRN 09/29/15 [History] Temazepam [Restoril] 15 mg PO HS PRN 09/29/15 [History] Nitroglycerin [Nitrostat] 0.4 mg SL Q5M PRN 10/05/16 [History] Metoprolol Succinate [Toprol Xl] 50 mg PO HS 10/27/17 [History] Sertraline [Zoloft] 100 mg PO HS 10/27/17 [History] Tramadol HCl [Ultram] 50 mg PO Q8H PRN 10/27/17 [History] Cholecalciferol (Vitamin D3) [Vitamin D] 50,000 unit PO QWEEK 08/05/18 [History] Allergy/AdvReac Type Severity Reaction Status Date / Time Iodinated Contrast- Oral and Allergy Mild Hives Verified 10/05/16 07:56 IV Dye [Iodinated Contrast Media - IV Dye] povidone-iodine Allergy Mild Hives Verified 10/05/16 07:56 [From Betadine] soap [From Betadine] Allergy Mild Hives Verified 10/05/16 07:56 Macrolide Antibiotics Allergy Unknown unknown Verified 10/05/16 07:56 chlorhexidine Allergy Hives Verified 10/05/16 07:56 [From Hibiclens] iodine AdvReac Mild Gastrointestinal Verified 10/05/16 07:56 Upset ampicillin AdvReac Gastrointestinal Verified 08/05/18 17:17 Upset Erythromycin Base AdvReac Gastrointestinal Verified 08/05/18 17:17 Upset All Systems Review: The remainder of the systems were reviewed and are negative - Cardiovascular Cardiovascular: as per HPI, chest pain with exertion, radiating jaw, neck or arm pain Physical Examination Vital Signs, Last 4 Hours Temp Pulse Resp BP Pulse Ox 08/06/18 06:48 98.7 F 71 14 109/69 98 08/06/18 06:43 63 108/72 08/06/18 06:28 65 116/79 08/06/18 06:00 64 111/70 General: Conversant, No Apparent Distress HEENT: Atraumatic, Normocephaly, Mucus Membranes Moist Neck: No JVD, Normal carotid pulses Cardiac: Reg Rate and Rhythm, Normal S1 and S2, No Murmur Lungs: Normal Breath Sounds, No Wheeze, Rales, Rhonchi Neuro: Alert and responsive, No focal deficits noted Abdomen: Soft, Non-Tender Skin: No rashes noted on visualized skin Musculoskeletal: No Chest Wall Tenderness Extremities: No Clubbing, No Cyanosis, No Edema, Normal Pulses Results 08/06/18 01:17 08/06/18 01:17 Lab Results Active Medications Aspirin (Aspirin) 81 mg PO DAILY [facility] Stop: 02/05/19 09:01 Last Admin: 08/06/18 07:52 Dose: 81 mg Atorvastatin Calcium (Lipitor) 40 mg PO HS [facility] Stop: 02/04/19 23:46 Last Admin: 08/06/18 00:20 Dose: 40 mg Clopidogrel Bisulfate (Plavix) 300 mg PO NOW ONE Stop: 08/06/18 09:17 Clopidogrel Bisulfate (Plavix) 75 mg PO DAILY [facility] Stop: 02/06/19 09:01 Diltiazem HCl (Cardizem) 30 mg PO Q6HR SIXTO Stop: 02/05/19 12:01 Heparin Sodium (Porcine) (Heparin) 4,000 unit IVP Q6HR PRN PRN Reason: SEE COMMENTS Stop: 02/04/19 21:56 Heparin Sodium (Porcine) (Heparin) 2,000 unit IVP Q6H PRN PRN Reason: SEE COMMENTS Stop: 02/04/19 21:56 Last Admin: 08/06/18 06:18 Dose: 2,000 unit Heparin Sodium/Dextrose (Heparin 25,000 Unit/250 Ml D5w) 25,000 unit in 250 mls @ 10.004 mls/hr IVC .Q24H [facility]; Protocol Stop: 02/04/19 22:01 Last Titration: 08/06/18 06:23 Dose: 13 unit/kg/hr, 11.8 mls/hr Nitroglycerin (Nitroglycerin Premix 25 Mg/250 Ml) 25 mg in 250 mls @ 3 mls/hr IVC .Q24H [facility]; Protocol Stop: 02/05/19 04:46 Last Titration: 08/06/18 09:16 Dose: 10 mcg/min, 6 mls/hr Metoprolol Succinate (Toprol Xl) 50 mg PO HS [facility] Stop: 02/04/19 23:46 Last Admin: 08/06/18 00:20 Dose: 50 mg Morphine Sulfate (Morphine Sulfate) 4 mg IVP Q3H PRN PRN Reason: Severe Pain (7-10) Stop: 02/04/19 21:25 Last Admin: 08/06/18 08:09 Dose: 4 mg Naloxone HCl (Narcan) 0.4 mg IVP Q2M PRN PRN Reason: SEE COMMENTS Stop: 02/04/19 21:08 Nitroglycerin (Nitroglycerin) 0.4 mg SL Q5M PRN PRN Reason: Chest Pain Stop: 02/04/19 21:25 Last Admin: 08/06/18 04:12 Dose: 0.4 mg Ondansetron HCl (Zofran) 4 mg IVP Q8H PRN; Protocol PRN Reason: Nausea And Vomiting Stop: 02/04/19 23:20 Last Admin: 08/06/18 06:19 Dose: 4 mg Prednisone (Prednisone) 60 mg PO NOW ONE Stop: 08/06/18 08:55 Sertraline HCl (Zoloft) 100 mg PO HS SIXTO Stop: 02/05/19 21:01 Laboratory Tests 08/06/18 08/06/18 01:17 01:17 WBC 12.9 H Hgb 13.1 Creatinine 0.61 Laboratory Tests 08/05/18 08/05/18 08/06/18 17:38 22:10 05:17 Troponin I < 0.03 0.19 H* 1.64 H* - Imaging and Cardiology Chest Xray: report reviewed Echo: pending, report reviewed Cardiac cath: pending, report reviewed - EKG Interpretation EKG results cardiology: personally reviewed (ECG with SR, HR 77. T wave inversions noted in in inferior and anterolateral leads.), other (Telemetry reviewed with average HR previous 12 hours noted to be 66, SR. PVCS, PACs noted.) Consult Discharge Plan - Plan Referrals: Greyson Anderson DO [Partnered Physician] - (Follow up has been requested )
--- NOTE | 2018-08-06 11:34 | Event Note ---
Date of Encounter: 08/06/18 Time of Encounter: 11:33 - Cardiology Event Note Patient reassessed, remains with 4/10 chest pain despite nitro titration. Discussed with Dr.Jennifer Schmidt, plan for [facility] today. Updated patient and family.
[2018-08-06] MEDS ORDERED: ISOVUE-370 200 ML INFUS..BTL ONE ×2 (11:39→12:52)
[2018-08-06] MEDS ORDERED: *HR* Heparin 10,000 UNIT/10 ML VIAL ONE (11:39)
[2018-08-06] MEDS ORDERED: 0.9 % Sodium Chloride 1,000 ML ONE (11:39)
[2018-08-06] MEDS ORDERED: Heparin 1,000 UNITS/500 mL 500 ML ONE (11:39)
[2018-08-06] MEDS ORDERED: Nitroglycerin 1,000 MCG/10 ML VIAL IV ONE (11:46)
--- NOTE | 2018-08-06 12:05 | Pre-Sedation Evaluation ---
Pre-sedation evaluation - Pre-sedation checklist Date of procedure: 08/06/18 Procedure: left heart cath Recent Vitals: Last Vital Signs Temp 98.7 F 08/06/18 10:00 Pulse 72 08/06/18 10:00 Resp 18 08/06/18 10:00 BP 128/90 08/06/18 10:00 Pulse Ox 97 08/06/18 10:00 H&P (including ROS) documented in medical record: No Previous reaction to sedatives/anesthetics: No Dietary Status: NPO after Midnight Airway Assessment: Patient can open mouth completely, TMJ function normal, Micrognathia (under-bite, receding chin) absent, Neck with adequate range of motion Dentition: No loose teeth or bridges Possible difficult airway: No ASA Classification *see protocol: CLASS II-Mild systemic disease Plan of Care: Pt appropriate candidate for procedure/moderate/conscious sedation, Risks/benefits of procedure/sedation discussed w/ patient/family Cardiac Registry (Cardio Only) - Functional Capacity Functional Capacity: < 4 METS - Clincal Frailty Scale Clinical Frailty Scale: Managing Well
[2018-08-06] MEDS ORDERED: *HR* Midazolam HCl 2 MG/2 ML VIAL ONE ×2 (12:06→13:00)
[2018-08-06] MEDS ORDERED: *HR* FentaNYL (PF) 100 MCG/2 ML VIAL ONE (12:06)
[2018-08-06] MEDS ORDERED: methylPREDNISolone 125 MG/2 ML VIAL ONE (12:07)
--- NOTE | 2018-08-06 12:22 | Internal Med Progress Note ---
Hospitalist Progress Note - Encounter Date of Encounter: 08/06/18 Time of Encounter: 12:19 - Subjective Interval History: Still complaining chest pain. Nitro drip 7.5 mics per minute, heparin drip in continuation. Review the lab and cardiology note Denies vomiting dizziness abdominal pain urinary complaint. Patient complained of headache, nausea, chest pain. - Exam Vitals: Temp Pulse Resp BP Pulse Ox 98.7 F 72 18 128/90 97 08/06/18 10:00 08/06/18 10:00 08/06/18 10:00 08/06/18 10:00 08/06/18 10:00 Exam: General appearance: Mild distress due to chest pain Head exam: Atraumatic Eye exam: EOMI, PERRLA ENT exam: Moist oral mucosa Neck nontender, supple Respiratory exam: Clear to auscultation bilaterally Cardiovascular exam: Regular rate and rhythm, no systolic murmur Abdominal exam: Soft, nontender, nondistended, positive bowel sounds Extremities exam: No calf tenderness, no pedal edema Present: Skin-no rash, warm, dry, intact Neurological exam: Alert, awake, oriented 3, CN II-XII intact, no focal deficits. - Assessment and Plan (1) Chest pain Current Visit: No Status: Acute Assessment and Plan: Patient presents with substernal chest pain . Trending of troponin level with change in EKG. Persistent chest pain even titrating up nitro drip. Updated cardiology team about the changes. Plan to take patient to catheter lab for LSC today. Echo report awaited. Appreciate cardiology input described as pressure-like with radiation to the left arm similar to presentation to patient's previous [place] in 2016 concerning for unstable angina. Serial EKGs were performed one of which showing ST segment elevation in leads II , III, and aVF with some reciprocal changes in [address] Schmidt who is on- call for interventional cardiology reviewed the EKG and did not deem it to be a STEMI. Patient received aspirin and 2 sublingual nitroglycerin, loading dose of brilanta 180 mg po and placed on a heparin drip. Patient currently continues to have chest pain related to 4 out of 10. She is somewhat diaphoretic. Repeat EKG showed isolated Q-wave in lead 3. (2) CAD (coronary artery disease) Current Visit: No Status: Acute Assessment and Plan: History of coronary artery disease status post PCI with stent to in 2016. -Continue medical management with statin and beta meagan. (3) DVT prophylaxis Current Visit: Yes Status: Acute Assessment and Plan: Patient on heparin drip. (4) NSTEMI (non-ST elevated myocardial infarction) Current Visit: Yes Status: Acute Assessment and Plan: As mentioned above - Time Spent with Patient Total time spent is greater than 50% in coordination of care (as documented) at patient's floor/unit and/or counseling patient: 25 - 35 minutes Plan of Care Discussed with: patient Internal Medicine: Result - Labs CBC & Chem 7: 08/06/18 01:17 08/06/18 01:17 Labs: Short CBC 08/05/18 08/06/18 Range/Units 22:10 01:17 WBC 14.0 H 12.9 H (4.3-11.1) K/mcL Hgb 12.9 13.1 (11.5-15.4) g/dL Hct 40.0 42.0 (35.3-44.9) % Plt Count 245 246 (140-400) K/mcL Neutrophils # 9.2 H (1.6-8.9) K/mcL BMP 08/06/18 01:17 Sodium 137 Potassium 3.4 L Chloride 105 Carbon Dioxide 23 BUN 7 Creatinine 0.61 Glucose 99 Calcium 8.9 Cardiac Enzymes 08/05/18 08/06/18 08/06/18 Range/Units 22:10 05:17 09:26 Troponin I 0.19 H* 1.64 H* 3.66 H* (< 0.04) ng/mL Liver Function 08/06/18 Range/Units 01:17 Total Bilirubin 0.7 (0.3-1.0) mg/dL AST 17 (13-39) Units/L ALT 17 (7-52) Units/L Alkaline Phosphatase 62 (34-104) Units/L Albumin 3.9 (3.5-5.7) g/dL - ABG Interpretation ABG results: PT/INR, D-dimer PT 11.5 Seconds (9.4-12.1) 08/06/18 01:17 Consult Discharge Plan - Plan Referrals: Greyson Anderson DO [Partnered Physician] - (Follow up has been requested ) (1) Chest pain Qualifiers: Chest pain type: unspecified Qualified Code(s): R07.9 - Chest pain, unspecified (2) CAD (coronary artery disease) Qualifiers: Associated angina: angina presence unspecified Qualified Code(s): I25.10 - Atherosclerotic heart disease of [place] coronary artery without angina pectoris
[2018-08-06] MEDS ORDERED: *HR* Bivalirudin 250 MG VIAL IVC ONE ×2 (12:41→13:07)
[2018-08-06] MEDS ORDERED: Tirofiban 12.5 MG/250ML 12.5 MG/250 ML BAG ONE (13:01)
[2018-08-06] MEDS: Tirofiban 12.5 MG/250ML 12.5 MG/250 ML BAG IVC SCH (13:05)
[2018-08-06] MEDS ORDERED: Nitroglycerin 25 MG/250 ML INFUS..BTL IVC ONE (13:08)
[2018-08-06] MEDS ORDERED: Ondansetron 4 MG/2 ML VIAL ONE ×2 (13:21→19:27)
[2018-08-06] MEDS ORDERED: 0.9 % Sodium Chloride 1,000 ML IVC SCH (14:00)
--- NOTE | 2018-08-06 14:06 | Invasive Diagnostic Lab Proc ---
Name: Pam Byrne Date of Study: 08/06/2018 Date: 1975 Ht: 66.9in Medical Record#: [id number] Age: 42 Wt: 199.30lb Gender: Female BSA: 2.02 Order #: [id number] BMI: 31.28 Physicians Procedure Physician: Hanh Schmidt MD, [facility] Referring MD: Greyson Anderson DO Referring MD: Staff Name Position Time In Reid Bustillo RN Monitor 12:09 PM Mike Huerta RN Ekg Technician 12:09 PM Toni Genao RT (R) Scrub 12:09 PM Indications Indication Unstable Angina Procedures Performed Procedure L HRT ARTERY/VENTRICLE ANGIO PRQ CARD KT STENT W/ANGIO 1 VSL Pre-Procedure Checklist Informed consent is complete signed and on chart. H&P is on chart. ID band is on and ID verified with patient. Patient NPO for procedure The procedure was described for the patient and questions were answered. Blood Pressure: 128/85 ECG is on chart. Rhythm: NSR Plan of Care Patient will tolerate the procedure without complications. Adequate level of comfort will be maintained. Hemodynamics will remain stable Patient will recover from procedure without complications. Respiratory function will be maintained. Cardiac rhythm will remain stable. Patient temperature will be maintained. Patient and/or family have verbalized understanding of the procedure. Patient Education Chief Complaint/Reason for Test: Cardiac Cath Developmental Category: Adult (18-64 years) Developmentally Appropriate for Age: Yes Learning Barriers: None Education Needs: Procedure Education Method: Verbal Information Taught: Cardiac Cath Educational Evaluation: Able to repeat information Intravenous Access Time IV Size Location DC'd Fluid/Drip Rate Units RN 12:02 PM 20g 1 1/4" Patent On Arrival Lt Antecubital 0.9NaCl 25 ml/hr Reid Bustillo RN 12:02 PM 20g 1 1/4" Patent On Arrival Rt Antecubital Reid Bustillo RN Allergies Iodinated Contrast Media - IV Dye soap penicillin V Macrolide (Erythromycin-Related) Erythromycin ampicillin Vital Signs Time BP (mmHg) HR (bpm) O2 Sat. RR (bpm) LOC 12:02 PM 128 / 90 72 98 % 18 5 = Fully awake and oriented or at pre-proc level 12:18 PM / % 5 = Fully awake and oriented or at pre-proc level 12:18 PM / % 4 = Oriented but drowsy 12:33 PM / % 4 = Oriented but drowsy 12:48 PM / % 4 = Oriented but drowsy 01:03 PM / % 4 = Oriented but drowsy 12:10 PM 83 / 54 77 98 % 12:12 PM 128 / 85 60 99 % 25 12:15 PM 131 / 79 64 100 % 21 12:20 PM 129 / 80 70 99 % 30 12:25 PM 129 / 84 76 99 % 30 12:30 PM 120 / 90 75 100 % 21 12:35 PM 111 / 64 69 98 % 27 12:40 PM 110 / 71 61 98 % 30 12:45 PM 123 / 81 67 99 % 25 12:50 PM 124 / 82 68 97 % 20 12:55 PM 125 / 77 66 97 % 14 01:00 PM 128 / 80 73 98 % 11 01:05 PM 128 / 85 69 96 % 22 01:10 PM 117 / 71 70 98 % 8 01:15 PM 112 / 76 69 96 % 8 01:21 PM 131 / 70 69 97 % 15 Procedural Medications Time Medication Dose Units Method Given By 12:14 PM Oxygen 2 L/min nasal cannula Mike Huerta RN 12:14 PM Versed 1 mg Intravenous Mike Huerta RN 12:15 PM Fentanyl 25 mcg Intravenous Mike Huerta RN 12:15 PM Benadryl 25 mg Intravenous Mike Huerta RN 12:15 PM Solumedrol 125 mg Intravenous Mike Huerta RN 12:23 PM Lidocaine 2% 18 ml Subcutaneous Hanh Schmidt MD, FACC 12:29 PM Nitroglycerin 200 mcg Intracoronary Hanh Schmidt MD, FACC 12:31 PM Nitroglycerin 200 mcg Intracoronary Hanh Schmidt MD, FACC 12:31 PM Nitroglycerin 30 mcg/min Intravenous Mike Huerta RN 12:33 PM Nitroglycerin 200 mcg Intracoronary Hanh Schmidt MD, FACC 12:34 PM Nitroglycerin 200 mcg Intracoronary Mike Huerta RN 12:40 PM Angiomax 0.75mg/kg bolus: 13.5 ml Intravenous Mike Huerta RN 12:43 PM Angiomax 1.75mg/kg/hr: 31.5 ml/hr Intravenous Mike Huerta RN 12:43 PM Versed 1 mg Intravenous Mike Huerta RN 12:43 PM Fentanyl 25 mcg Intravenous Mike Huerta RN 12:59 PM Nitroglycerin 150 mcg Intracoronary Hanh Schmidt MD, FACC 01:01 PM Versed 1 mg Intravenous Mike Hureta RN 01:01 PM Fentanyl 25 mcg Intravenous Mike Huerta RN 01:04 PM Aggrastat Bolus: 46 ml Intravenous Mike Huerta RN 01:04 PM Aggrastat 12.5mg/250ml 16.5 ml/hr Intravenous Mike Huerta RN 01:10 PM Nitroglycerin 200 mcg Intracoronary Hanh Schmidt MD, FACC 01:10 PM Nitroglycerin 200 mcg Intracoronary Hanh Schmidt MD, FACC 01:12 PM Nitroglycerin 200 mcg Intracoronary Hanh Schmidt MD, FACC 01:25 PM Zofran 4 mg Intravenous Mike Huerta RN 01:26 PM Plavix 300 mg Orally Mike Huerta RN ASA Classification: CLASS II- Mild systemic disease (i.e. well-controlled diabetes, hypertension, asthma, cigarette smoking) Gama Score Preprocedure Postprocedure Activity 2- Moves 4 extremities sustained head lift Activity 2- Moves 4 extremities sustained head lift Circulation 2- SBP +/= 20 points of pre-anesthetic level Circulation 2- SBP +/= 20 points of pre-anesthetic level Consciousness 2- Awake and alert oriented x 3 Consciousness 2- Awake and alert oriented x 3 O2 Saturation 2- Able to maintain O2 satruation of 92% on room air O2 Saturation 2- Able to maintain O2 satruation of 92% on room air Respiratory 2- Able to deep breathe and cough well Respiratory 2- Able to deep breathe and cough well Total Score 10 Total Score 10 Contrast Agent: Isovue Diagnostic Contrast: 200 ml Total Contrast: 200 ml Fluoro Dose: 68 mGy Procedure Log Time Note Enter By 11:57 AM CathStat 12:04 PM Case Start 12:08 PM Meet and greet completed csmith 12:08 PM Sign in performed according to hospital policy. Informed consent was obtained. 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 Right wrist and Right groin prepped with Chloraprep by Toni Genao (R), then patient was draped. Skin intact. Patient denies allergies to CHG prep. csmith 12:10 PM Physician arrived 12:08 csmith 12:10 PM ASA Class CLASS II- Mild systemic disease (i.e. well-controlled diabetes, hypertension, asthma, cigarette smoking) csmith 12:10 PM HR=77 bpm, NIBP=83/54 mmhg, SpO2=98.0 %, EtCO2=38 mmHg, Comment=sr 12:10 PM chest pain currently 2-3/10 per patient. Feels it with each heart beat. csmith 12:11 PM NIBP STAT measurement started. 12:11 PM Recorded ECG: HR=63 Condition=Condition 1 12:12 PM HR=60 bpm, UJOR=170/85 mmhg, SpO2=99.0 %, Resp=25 B/min, EtCO2=38 mmHg, Comment=sr 12:14 PM Time: 12:14 Oxygen on at 2 L/min per nasal cannula by Mike Huerta RN [facility] 12:14 PM Time: 12:14 Versed 1 mg Intravenous Given by Mike Huerta RN [facility] 12:15 PM Time: 12:15 Fentanyl 25 mcg Intravenous Given by Mike Huerta RN [facility] 12:15 PM Time: 12:15 Benadryl 25 mg Intravenous Given by Mike Huerta RN [facility] 12:15 PM HR=64 bpm, EHQA=485/79 mmhg, RuG9=034.0 %, Resp=21 B/min, EtCO2=39 mmHg, Comment=sr 12:15 PM Time: 12:15 Solumedrol 125 mg Intravenous Given by Mike Huerta RN [facility] 12:18 PM Time: 12:17 Patient comfortable and pain free: Yes csmith 12:18 PM Time: 12:18LOC: 5 = Fully awake and oriented or at pre-proc level csmith 12:20 PM HR=70 bpm, LFRL=881/80 mmhg, SpO2=99.0 %, Resp=30 B/min, EtCO2=41 mmHg, Comment=sr 12:21 PM Time out was performed according to hospital policy. Conscious sedation and anesthesia was achieved (see medication log with in this report above) [facility] 12:21 PM Clinical Presentation: Unstable angina [facility] 12:25 PM Time: 12:23 18 ml Lidocaine 2% to right groin Subcutaneous Given by Hanh Schmidt MD, [facility] 12:25 PM HR=76 bpm, FLER=679/84 mmhg, SpO2=99.0 %, Resp=30 B/min, EtCO2=40 mmHg, Comment=sr 12:25 PM Pressure channel 1 zeroed. 12:25 PM Access obtained by percutaneous puncture. 5Fr 10cm Terumo [place] sheath placed in right Femoral artery. [id number] [facility] 12:25 PM 5Fr FL 4 catheter inserted over the wire [facility] 12:25 PM 0.035 145cm Navilyst 3mmJ wire [id number] [facility] 12:25 PM LCA angiography performed in multiple views. [facility] 12:26 PM Recorded Pressure: Ao, HR=74, Condition=Condition 1 (Aorta) Ao 118/85/101 12:26 PM Catheter removed [facility] 12:27 PM 5Fr FR 4 catheter inserted over the wire [facility] 12:27 PM Coronary Dominance: right [facility] 12:28 PM Recorded Pressure: Ao, HR=80, Condition=Condition 1 (Aorta) Ao 108/83/95 12:29 PM RCA angiography performed in multiple views.[facility] with chest pain. [facility] 12:30 PM HR=75 bpm, VLPF=106/90 mmhg, FuI9=333.0 %, Resp=21 B/min, EtCO2=40 mmHg, Comment=sr 12:30 PM Time: 12:29 Nitroglycerin 200 mcg Intracoronary Given by Hanh Schmidt MD, [facility] 12:30 PM Recorded Pressure: Ao, HR=87, Condition=Condition 1 (Aorta) Ao 97/81/88 12:31 PM Time: 12:31 Nitroglycerin 200 mcg Intracoronary Given by Hanh Schmidt MD, [facility] 12:31 PM Time: 12:31 Nitroglycerin 30 mcg/min Intravenous Given by Mike Huerta RN Lazo pump csmith 12:33 PM Time: 12:18LOC: 4 = Oriented but drowsy csmith 12:33 PM Time: 12:18 Patient comfortable and pain free: no - patient with chest pain csmith 12:33 PM Time: 12:33 Nitroglycerin 200 mcg Intracoronary Given by Hanh Schmidt MD, [facility] csmith 12:34 PM Time: 12:34 Nitroglycerin 200 mcg Intracoronary Given by Mike Huerta RN csmith 12:35 PM HR=69 bpm, HEYQ=311/64 mmhg, SpO2=98.0 %, Resp=27 B/min, EtCO2=35 mmHg, Comment=sr 12:36 PM Inflation device was opened. csmith 12:37 PM Sheath exchanged for a 6 Fr 11 cm Cordis Augustina sheath [id number] csmith 12:40 PM HR=61 bpm, FLVR=337/71 mmhg, SpO2=98.0 %, Resp=30 B/min, EtCO2=37 mmHg, Comment=sr 12:42 PM 6Fr IM Runway guide catheter was used to cannulate the PCI vessel successfully. reused? No csmith 12:43 PM Time: 12:40 Angiomax 0.75mg/kg bolus: 13.5 ml Intravenous Given by Mike Huerta RN Lazo pump csmith 12:43 PM Time: 12:43 Angiomax 1.75mg/kg/hr: 31.5 ml/hr Intravenous Given by Mike Huerta RN Lazo pump csmith 12:43 PM Time: 12:43 Versed 1 mg Intravenous Given by [facility] 12:43 PM Time: 12:43 Fentanyl 25 mcg Intravenous Given by Mike Huerta RN csmith 12:44 PM 3.0mm x 38mm Synergy drug-eluting stent across target lesion- successful Lot #[id number] csmith 12:45 PM HR=67 bpm, FTUJ=594/81 mmhg, SpO2=99.0 %, Resp=25 B/min, EtCO2=36 mmHg, Comment=sr 12:45 PM PCI lesion in Mid RCA. Pre Stenosis: 99 Pre RYAN Flow: 1: Slow Penetration without Perfusion csmith 12:45 PM Stent deployed @ 12 lis for 30 seconds csmith 12:45 PM Stent delivery system removed intact. csmith 12:47 PM 3.0mm x 38mm Synergy drug-eluting stent across target lesion- successful Lot #[id number] csmith 12:47 PM Stent deployed @ 12 lis for 30 seconds csmith 12:47 PM PCI lesion in Proximal RCA. Pre Stenosis: 99 Pre RYAN Flow: 1: Slow Penetration without Perfusion csmith 12:48 PM Time: 12:33LOC: 4 = Oriented but drowsy csmith 12:48 PM Time: 12:33 Patient comfortable and pain free: no - patient having continued chest pain csmith 12:48 PM Stent deployed @ 16 lis for 10 seconds csmith 12:50 PM HR=68 bpm, XHNF=214/82 mmhg, SpO2=97.0 %, Resp=20 B/min, EtCO2=37 mmHg, Comment=sr 12:50 PM Stent delivery system removed intact. csmith 12:55 PM HR=66 bpm, VQGH=181/77 mmhg, SpO2=97.0 %, Resp=14 B/min, EtCO2=34 mmHg, Comment=sr 12:57 PM 3.5mm x 32mm Synergy drug-eluting stent across target lesion- successful Lot #[id number] csmith 12:57 PM Stent deployed @ 12 lis for 30 seconds csmith 12:58 PM Stent balloon reinflated @ 16 lis for 16 seconds csmith 12:59 PM Stent delivery system removed intact. csmith 01:00 PM Time: 12:59 Nitroglycerin 150 mcg Intracoronary Given by Hanh Schmidt MD, [facility] csmith 01:00 PM HR=73 bpm, TCVR=084/80 mmhg, SpO2=98.0 %, Resp=11 B/min, Temp=35 deg C, Comment=sr 01:00 PM Recorded Pressure: Ao, HR=74, Condition=Condition 1 (Aorta) Ao 113/79/94 01:01 PM Time: 13:01 Versed 1 mg Intravenous Given by Mike Huerta RN csmith 01:01 PM Time: 13:01 Fentanyl 25 mcg Intravenous Given by [facility] 01:03 PM Time: 12:48 Patient comfortable and pain free: No csmith 01:03 PM Time: 12:48LOC: 4 = Oriented but drowsy csmith 01:04 PM Time: 13:04 Aggrastat Bolus: 46 ml Intravenous Given by Huerta, Mike RN IVP csmith 01:05 PM Time: 13:04 Aggrastat 12.5mg/250ml 16.5 ml/hr Intravenous Given by Mike Huerta RN Lazo pump csmith 01:05 PM chest pain improving at this time per patient, unable to quantify csmith 01:05 PM HR=69 bpm, EVZT=132/85 mmhg, SpO2=96.0 %, Resp=22 B/min, EtCO2=35 mmHg, Comment=sr 01:10 PM Time: 13:10 Nitroglycerin 200 mcg Intracoronary Given by Hanh Schmidt MD, [facility] csmith 01:10 PM HR=70 bpm, JZOU=899/71 mmhg, SpO2=98.0 %, Resp=8 B/min, Comment=sr 01:10 PM Time: 13:10 Nitroglycerin 200 mcg Intracoronary Given by Hanh Schmidt MD, [facility] csmith 01:12 PM Guide wire removed intact. csmith 01:13 PM Time: 13:12 Nitroglycerin 200 mcg Intracoronary Given by Hanh Schmidt MD, [facility] 01:14 PM Bolus angiogram of right Femoral complete: 4 ml/sec for a total of 7 mls csmith 01:14 PM 5Fr Pigtail catheter inserted over the wire [facility] csmith 01:14 PM Catheter crossed the aortic valve and was selectively placed in the left ventricle. Pressures recorded on pullback for left heart catheterization. csmith 01:15 PM HR=69 bpm, DCES=288/76 mmhg, SpO2=96.0 %, Resp=8 B/min, EtCO2=34 mmHg, Comment=sr 01:15 PM Pressure channel 1 zeroed. 01:15 PM Recorded Pressure: LV, HR=72, Condition=Condition 1 (Left Ventricle) LV 124/1/11 01:16 PM Bolus angiogram of left Ventricle complete: 8 ml/sec for a total of 24 mls csmith 01:16 PM Recorded Pressure: LV, Ao, HR=69, Condition=Condition 1 (Left Ventricle) LV 88/20/20, (Aorta) Ao 104/79/92 01:18 PM Time: 13:03LOC: 4 = Oriented but drowsy csmith 01:18 PM Time: 13:03 Patient comfortable and pain free: Yes csmith 01:21 PM HR=69 bpm, WTRF=022/70 mmhg, SpO2=97.0 %, Resp=15 B/min 01:26 PM Sign out completed: Radiation Dose 762 mGy, 68 Gy/cm2 Fluoro Time: 13.9 Isovue 370 - 200ml contrast 200 ml given by Hanh Schmidt MD, [facility]. Complications: None. 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 Sedation minutes 72. Cardiac Rehab Consult needed: Yes. Confirmed administered medications: Yes csmith 01:26 PM Time: 13:25 Zofran 4 mg Intravenous Given by Mike Huerta RN csmith 01:26 PM 13:38 Post Pulses Bilateral DP 1+ csmith 01:26 PM Time: 13:26 Plavix 300 mg Orally Given by Mike Huerta RN csmith 01:26 PM Opsite applied csmith 01:31 PM Family placed in consult room. csmith 01:31 PM Report given to raudel PIPER Pt taken to ICU Room #7. 13:31 csmith 01:34 PM Coronary Dominance: right csmith 01:35 PM Lesion found in Proximal RCA. Pre Stenosis: 99 Pre RYAN Flow: 1: Slow Penetration without Perfusion csmith 01:35 PM Lesion found in Mid RCA. Pre Stenosis: 99 Pre RYAN Flow: 1: Slow Penetration without Perfusion csmith 01:35 PM Lesion found in Right PDA. Pre Stenosis: 100 Pre RYAN Flow: 0: No Flow/No perfusion csmith 01:35 PM Procedure completed at 13:26 08/06/2018 csmith 01:35 PM Did you address RYAN flow and Dominance? Yes csmith 01:38 PM Sheath left in place to be pulled on floor/holding area csmith 01:38 PM Estimated Blood Loss: minimal csmith 01:38 PM Post ECG NSR csmith 01:38 PM Post Blood Pressure 131/70 csmith 01:38 PM Information taught Cardiac Cath and PCI csmith 01:38 PM Education needs Responsibilities of Patient in Care csmith 01:38 PM Learning barriers :Sedated csmith 01:38 PM Education Methods Verbal csmith 01:38 PM Education evaluation Not ready to learn csmith 01:38 PM Site status No bleeding/hematoma - Rt Groin as reported by Toni Genao RT (R) at 13:26 csmith 01:50 PM Contrast total is 200ml. Unable to change post-care contrast amount. csmith Complications Complication None Dissection Hemodynamics Pressures Site Systolic/A Wave Diastolic/V Wave Mean AO 118 85 101 AO 108 83 95 AO 97 81 88 AO 113 79 94 LV 124 1 11 LV 88 20 20 AO 104 79 92 Post Procedure Information Blood Pressure: 131/70 mmHg Rhythm: NSR Post procedural instructions were given Site Checks Time Location Status Staff Sheath In? Note 01:38 PM Rt Groin No bleeding/hematoma Toni Genao RT (R) Pulses Time Site Pre-Procedure Post-Procedure Note 08/06/2018 12:03:00 PM Bilateral DP 1+ 08/06/2018 12:03:00 PM Bilateral radial 2+ 1:38:00 PM Bilateral DP 1+ Updated by Reid Bustillo RN on 08/06/2018 1:54:06 PM electronically signed on 08/06/2018 1:55:58 PM with status of Final
[2018-08-06] MEDS: Ondansetron 4 MG/2 ML VIAL IVP PRN (19:30)
[2018-08-06] MEDS ORDERED: Aspirin Enteric Coated 81 MG Tablet PO SCH (21:00)
[2018-08-07] MEDS: Nitroglycerin 25 MG/250 ML INFUS..BTL IVC SCH (00:23)
[2018-08-07] MEDS: Tirofiban 12.5 MG/250ML 12.5 MG/250 ML BAG IVC SCH (00:45)
[2018-08-07] MEDS: Ondansetron 4 MG/2 ML VIAL IVP PRN ×2 (02:49→10:33)
[2018-08-07] MEDS: *HR* Morphine 2 MG/ML SYRINGE IVP PRN ×4 (03:33→18:34)
[2018-08-07] MEDS: Aspirin 81 MG TAB.CHEW PO SCH (08:10)
--- NOTE | 2018-08-07 10:05 | Electrocardiograph Report ---
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
--- NOTE | 2018-08-07 10:10 | Electrocardiograph Report ---
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
--- NOTE | 2018-08-07 10:10 | Electrocardiograph Report ---
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
[2018-08-07 10:42] LABS: Basophils % 0.1 %; Hematocrit 34.7 % (35.3-44.9); Immature Granulocytes % 0.7 % (0-4); Lymphocytes # 0.6 K/mcL (0.6-4.6); Mean Corpuscular HGB Conc 32.3 g/dL (31.6-35.5); Mean Corpuscular Hemoglobin 28.2 pg (28.0-33.3); Mean Corpuscular Volume 87.4 fL (83.0-100.0); Mean Platelet Volume 9.7 fL (9.4-12.4); Monocytes # 0.7 K/mcL (0.0-1.3); Monocytes % 4.2 %; Neutrophils # 14.6 K/mcL (1.6-8.9); Platelet Count 229 K/mcL (140-400); Red Blood Count 3.97 M/mcL (3.82-4.97); Red Cell Distribution Width 13.7 % (11.5-14.5)
[2018-08-07 10:43] LABS: Hemoglobin 11.2 g/dL (11.5-15.4)
--- NOTE | 2018-08-07 10:59 | Cardiology Progress Note ---
Date of Encounter: 08/07/18 Time of Encounter: 10:15 Assessment and Plan (1) NSTEMI (non-ST elevated myocardial infarction) Current Visit: Yes Status: Acute Per cardiology: -Troponins negative, 0.19, 1.64, 3.66. 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 Collaterals from circ to PDA noted. -TTE with LVEF 55%, no wall motion abnormalities. -On asa, plavix, statin, BB, aggrastat until 1400, nitro drip currently off. -Complains of 3/10 chest pain and nausea. -ASA, plavix uninterrupted for at least one year. -Zofran ordered for nausea. Recommend nitro drip as needed for chest pain. -Anticipate patient will have chest discomfort. -Will continue to monitor. (2) Chest pain Current Visit: No Status: Acute Per cardiology: -Admitted with typical angina. -Concern for vasospams also. -See NSTEMI Qualifiers: Chest pain type: unspecified Qualified Code(s): R07.9 - Chest pain, unspecified Discussion w patient/family: The assessment and plan as outlined above was discussed with the patient who expressed understanding and agreement. All questions were answered. Thank you for involving us in the care of your patient. Please call with any questions. Discussed and reviewed with Subjective Principal diagnosis: NSTEMI Interval history: Patient reports 3/10 chest pain. States morphine helps the most with the chest pain. Objective Vital Signs, Last 4 Hours Pulse Resp BP Pulse Ox 08/07/18 10:00 71 16 89/57 95 08/07/18 09:00 69 16 81/57 96 08/07/18 08:00 73 16 99/68 96 08/07/18 07:00 62 16 81/51 95 General: Conversant, No Apparent Distress HEENT: Atraumatic, Normocephaly, Mucus Membranes Moist Neck: No JVD, Normal carotid pulses Cardiac: Reg Rate and Rhythm, Normal S1 and S2, No Murmur Lungs: Normal Breath Sounds, No Wheeze, Rales, Rhonchi Neuro: Alert and responsive, No focal deficits noted Abdomen: Soft, Non-Tender Skin: No rashes noted on visualized skin, Other (Right groin access site without ecchymosis or hematoma. ) Musculoskeletal: No Chest Wall Tenderness Extremities: No Clubbing, No Cyanosis, No Edema, Normal Pulses Results 08/07/18 10:09 08/06/18 01:17 Lab Results Impressions Echocardiogram 08/05/18 21:16 Impressions: LVEF 55%. Normal LV chamber size, wall thickness and function. Normal right ventricular structure and function. Mild mitral regurgitation. Mild tricuspid regurgitation. Mild pulmonic regurgitation. No pulmonary hypertension. Left Ventricular Wall Motion: Rest Echo Findings All wall segments showed normal motion. Findings: Study Quality * Technically adequate exam. ECG Findings * Sinus rhythm with BBB. Left Ventricle * LVEF 55%. * Normal LV chamber size, wall thickness and systolic function. * Normal left ventricular diastolic function. Right Ventricle * Normal right ventricular structure and function. Left Atrium * Normal left atrial size. Right Atrium * Normal right atrial size. Interatrial Septum * Interatrial septum not well evaluated. * No evidence of PFO by color Doppler. Aortic Valve * Trileaflet aortic valve with normal function. * No aortic stenosis. * No aortic regurgitation. Mitral Valve * Normal mitral valve structure. * No mitral stenosis. * Mild mitral regurgitation. Tricuspid Valve * Normal tricuspid valve structure. * No tricuspid stenosis. * Mild tricuspid regurgitation. * Estimated RVSP is 21 mmHg. * Estimated RA pressure is 3 mmHg. * No pulmonary hypertension. Pulmonic Valve * Pulmonic valve is not well visualized. * No pulmonic stenosis. * Mild pulmonic regurgitation. Aorta * Normally sized aortic root. Pericardium * The pericardium appears normal. IVC * The IVC is not dilated. * > 50% respiratory change Active Medications Acetaminophen (Tylenol) 650 mg PO Q6HR PRN PRN Reason: Mild Pain Stop: 02/05/19 13:56 Aspirin (Aspirin) 81 mg PO DAILY SIXTO Stop: 02/05/19 09:01 Last Admin: 08/07/18 08:10 Dose: 81 mg Atorvastatin Calcium (Lipitor) 40 mg PO HS [facility] Stop: 02/04/19 23:46 Last Admin: 08/06/18 23:14 Dose: 40 mg Clopidogrel Bisulfate (Plavix) 75 mg PO DAILY [facility] Stop: 02/06/19 09:01 Last Admin: 08/07/18 08:10 Dose: 75 mg Diltiazem HCl (Cardizem) 30 mg PO Q6HR [facility] Stop: 02/05/19 12:01 Last Admin: 08/07/18 06:42 Dose: Not Given Nitroglycerin (Nitroglycerin Premix 25 Mg/250 Ml) 25 mg in 250 mls @ 3 mls/hr IVC .Q24H SIXTO; Protocol Stop: 02/05/19 04:46 Last Admin: 08/07/18 00:23 Dose: 25 mcg/min, 15 mls/hr Tirofiban/Sodium Chloride (Aggrastat 12.5 Mg/250 Ml) 12.5 mg in 250 mls @ 16.37 mls/hr IVC .[id number] SIXTO Stop: 08/07/18 14:00 Last Admin: 08/07/18 00:45 Dose: 0.15 mcg/kg/min, 16.4 mls/hr Metoprolol Succinate (Toprol Xl) 50 mg PO HS [facility] Stop: 02/04/19 23:46 Last Admin: 08/06/18 23:14 Dose: 50 mg Morphine Sulfate (Morphine Sulfate) 4 mg IVP Q3H PRN PRN Reason: Severe Pain (7-10) Stop: 02/04/19 21:25 Last Admin: 08/07/18 08:10 Dose: 4 mg Naloxone HCl (Narcan) 0.4 mg IVP Q2M PRN PRN Reason: SEE COMMENTS Stop: 02/04/19 21:08 Nitroglycerin (Nitroglycerin) 0.4 mg SL Q5M PRN PRN Reason: Chest Pain Stop: 02/04/19 21:25 Last Admin: 08/06/18 04:12 Dose: 0.4 mg Ondansetron HCl (Zofran) 4 mg IVP Q6HR PRN; Protocol PRN Reason: Nausea Stop: 02/05/19 19:25 Last Admin: 08/07/18 10:33 Dose: 4 mg Sertraline HCl (Zoloft) 100 mg PO [facility] Stop: 02/05/19 21:01 Last Admin: 08/06/18 23:14 Dose: 100 mg Laboratory Tests 08/07/18 10:09 WBC 16.0 H Hgb 11.2 L D - Imaging and Cardiology Chest Xray: report reviewed Echo: report reviewed Cardiac cath: report reviewed Consult Discharge Plan - Plan Referrals: Greyson Anderson DO [Partnered Physician] - (Follow up has been requested )
[2018-08-07 11:00] LABS: BUN/Creatinine Ratio 15 (6-26); Blood Urea Nitrogen 9 mg/dL (6-20); Calcium 8.8 mg/dL (8.6-10.3); Carbon Dioxide 21 mEq/L (23-29); Chloride 107 mEq/L (98-107); Glucose 148 mg/dL (70-105); Osmolality,Calculated 283 (280-300); Potassium 3.9 mEq/L (3.5-5.1); Sodium 136 mEq/L (136-145); eGFR For Non-African Americans > 60 (> 60)
--- NOTE | 2018-08-07 13:45 | Internal Med Progress Note ---
Hospitalist Progress Note - Encounter Date of Encounter: 08/07/18 Time of Encounter: 13:44 - Subjective Interval History: Patient is in ICU status post heart catheter done on 2018. Is still complain of chest pain. Nitro drip's was is stopped as low blood pressure. Reviewed lab with raised white count Denies fever chills vomiting headache dizziness abdominal pain urinary or bowel complaint. She does complain of nausea and some shortness of breath with minimal cough - Exam Vitals: Temp Pulse Resp BP Pulse Ox 98.3 F 76 16 107/67 99 08/07/18 11:45 08/07/18 13:00 08/07/18 13:00 08/07/18 13:00 08/07/18 13:00 Exam: General appearance: Mild distress due to chest pain rating 4 x 10. at bedside Head exam: Atraumatic Eye exam: EOMI, PERRLA ENT exam: Moist oral mucosa Neck nontender, supple Respiratory exam: Clear to auscultation bilaterally Cardiovascular exam: Regular rate and rhythm, no systolic murmur Abdominal exam: Soft, nontender, nondistended, positive bowel sounds Extremities exam: No calf tenderness, no pedal edema Present: Skin-no rash, warm, dry, intact Neurological exam: Alert, awake, oriented 3, CN II-XII intact, no focal deficits. - Assessment and Plan (1) Chest pain Current Visit: No Status: Acute Assessment and Plan: NST DC-status post LSC done on 2018 with severe one-vessel CAD,coronary a ngiography complicated by spiral dissection of RCA successfully stented with scientologist of RYAN 3 flow, patent previous stent in OM. Collaterals from circ to PDA noted. Continue aspirin Plavix, statin, beta meagan, Aggrastat drip will be stopped this afternoon. Currently off from nitro drip due to low blood pressure. Morphine when necessary for chest pain-concern for versus spasm. Cardiology on board impressions: LVEF 55%. Normal LV chamber size, wall thickness and function. Normal right ventricular structure and function. Mild mitral regurgitation. Mild tricuspid regurgitation. Mild pulmonic regurgitation. No pulmonary hypertension. (2) NSTEMI (non-ST elevated myocardial infarction) Current Visit: Yes Status: Acute Assessment and Plan: As mentioned above (3) CAD (coronary artery disease) Current Visit: No Status: Acute Assessment and Plan: History of coronary artery disease status post PCI with stent to OM in 2016. -Continue medical management as above (4) Leucocytosis Current Visit: Yes Status: Acute Assessment and Plan: With no fever. Is patient is postprocedure there could be risk of infection but patient denies any chest pain urinary complaint. Will order urine analysis with reflux to culture and chest x-ray to rule out underlying infection. That could be also reactive secondary to post procedure. Monitor CBC no antibiotic at this time (5) DVT prophylaxis Current Visit: Yes Status: Acute Assessment and Plan: Patient on heparin subcutaneous - Time Spent with Patient Total time spent is greater than 50% in coordination of care (as documented) at patient's floor/unit and/or counseling patient: 25 - 35 minutes Plan of Care Discussed with: family Internal Medicine: Result - Labs CBC & Chem 7: 08/07/18 10:09 08/07/18 10:09 Labs: Short CBC 08/07/18 Range/Units 10:09 WBC 16.0 H (4.3-11.1) K/mcL Hgb 11.2 L D (11.5-15.4) g/dL Hct 34.7 L (35.3-44.9) % Plt Count 229 (140-400) K/mcL Neutrophils # 14.6 H (1.6-8.9) K/mcL BMP 08/07/18 10:09 Sodium 136 Potassium 3.9 Chloride 107 Carbon Dioxide 21 L BUN 9 Creatinine 0.62 Glucose 148 H Calcium 8.8 - ABG Interpretation ABG results: PT/INR, D-dimer PT 11.5 Seconds (9.4-12.1) 08/06/18 01:17 Consult Discharge Plan - Plan Referrals: Greyson Anderson DO [Partnered Physician] - (Follow up has been requested ) (1) Chest pain Qualifiers: Chest pain type: unspecified Qualified Code(s): R07.9 - Chest pain, unspecified (3) CAD (coronary artery disease) Qualifiers: Associated angina: angina presence unspecified Qualified Code(s): I25.10 - Atherosclerotic heart disease of [place] coronary artery without angina pectoris (4) Leucocytosis Qualifiers: Leukocytosis type: unspecified Qualified Code(s): D72.829 - Elevated white blood cell count, unspecified
[2018-08-07] MEDS: *HR* Promethazine 25 MG/ML VIAL IVP PRN ×2 (14:00→19:49)
--- NOTE | 2018-08-07 16:41 | Electrocardiograph Report ---
[place] [id number] Test Date: 2018-08-06 Pat Name: Pam Byrne Department: 109 Room: [facility] Gender: F [employer] Associate: SHERMAN : 1975 Requested By: Hanh Schmidt Order Number: [id number] Reading MD: Amrit Shannon Measurements Intervals [place] Rate: 67 P: 46 ME: 161 QRS: 33 QRSD: 87 T: 136 QT: 427 QTc: 442 Interpretive Statements SINUS RHYTHM ST DEVIATION AND MODERATE T-WAVE ABNORMALITY, CONSIDER ANTEROLATERAL ISCHEMIA Electronically Signed On 08-07-2018 16:39:29 EDT by Amrit Shannon
[2018-08-07] MEDS: Metoprolol XL (24 HR) Succ 50 MG TAB.ER.24H PO SCH (19:51)
[2018-08-07 19:57] LABS: Bilirubin,Urine Negative (Negative); Blood,Urine Negative (Negative); Clarity,Urine Clear (Clear); Color,Urine Yellow (Yellow); Glucose,Urine (UA) Normal (Normal); Ketones,Urine Negative (Negative); Leukocyte Esterase,Urine Negative (Negative); Nitrite,Urine Negative (Negative); Protein,Urine Negative (Neg-Trace); Specific Gravity,Urine 1.008 (1.010-1.025); Urobilinogen,Urine Normal (Normal)
[2018-08-08] MEDS: Ondansetron 4 MG/2 ML VIAL IVP PRN ×3 (00:07→19:43)
[2018-08-08] MEDS: *HR* Morphine 2 MG/ML SYRINGE IVP PRN ×2 (00:09→08:48)
[2018-08-08] MEDS: Nitroglycerin 25 MG/250 ML INFUS..BTL IVC SCH (03:09)
[2018-08-08] MEDS: *HR* Promethazine 25 MG/ML VIAL IVP PRN ×3 (05:15→21:08)
[2018-08-08 06:06] LABS: Basophils % 0.1 %; Eosinophils % 0.1 %; Hematocrit 35.2 % (35.3-44.9); Hemoglobin 11.3 g/dL (11.5-15.4); Immature Granulocytes % 0.6 % (0-4); Lymphocytes # 1.7 K/mcL (0.6-4.6); Lymphocytes % 11.3 %; Mean Corpuscular HGB Conc 32.1 g/dL (31.6-35.5); Mean Corpuscular Hemoglobin 28.3 pg (28.0-33.3); Mean Platelet Volume 9.8 fL (9.4-12.4); Monocytes # 1.4 K/mcL (0.0-1.3); Monocytes % 9.3 %; Neutrophils # 11.9 K/mcL (1.6-8.9); Platelet Count 190 K/mcL (140-400); Segmented Neutrophils % 78.6 %
[2018-08-08 06:22] LABS: BUN/Creatinine Ratio 18 (6-26); Blood Urea Nitrogen 13 mg/dL (6-20); Calcium 8.7 mg/dL (8.6-10.3); Carbon Dioxide 24 mEq/L (23-29); Chloride 106 mEq/L (98-107); Glucose 99 mg/dL (70-105); Osmolality,Calculated 286 (280-300); Potassium 3.8 mEq/L (3.5-5.1); Sodium 138 mEq/L (136-145); eGFR For Non-African Americans > 60 (> 60)
[2018-08-08] MEDS: Aspirin 81 MG TAB.CHEW PO SCH (08:47)
[2018-08-08] MEDS ORDERED: Metoprolol XL (24 HR) Succ 50 MG TAB.ER.24H PO SCH (10:12)
[2018-08-08] MEDS ORDERED: 0.9 % Sodium Chloride 1,000 ML IVC SCH (10:15)
--- NOTE | 2018-08-08 10:20 | Internal Med Progress Note ---
Hospitalist Progress Note - Encounter Date of Encounter: 08/08/18 Time of Encounter: 09:20 - Subjective Interval History: Patient seen and examined with family present at bedside. Pt states she feels better compared to previous day and the chest discomfort persists. Noted to have epigastric pain associated with heart burn. States she took some tums overnight which helped with her chest discomfort. Denies any headache, dizziness, sob at this time. Ten point ROS is negative except as listed above - Exam Vitals: Temp Pulse Resp BP Pulse Ox 99.2 F 122 20 93/77 97 08/08/18 07:40 08/08/18 08:17 08/08/18 08:00 08/08/18 08:00 08/08/18 08:00 Exam: General: No acute distress, AAO x 3, obese HEENT: EOMI,PERRLA, NC/AT, no scleral icterus Respiratory: Clear to auscultate bilaterally, no wheezing, no rales Cardiovascular: Regular, Rate, Rhythm, No murmurs GI: Soft, Non tender, non distended, normal bowel sounds Ext: No edema, no tenderness, positive pulses Neuro: AAO x 3, no focal deficits - Assessment and Plan (1) NSTEMI (non-ST elevated myocardial infarction) Current Visit: Yes Status: Acute Assessment and Plan: NSTEMI s/p C with PCI on 08/06/18 continue ASA, Plavix, BB, Statin noted to have labile BP readings, will hold BB for SBP<100 cardiology on board and evaluation appreciated Pt is medically stable to be transferred out of the ICU to [facility] with telemetry Tentative d/c in am if remains clinically stable and chest pain free Current chest discomfort likely secondary to reflux, will initiate PPI therapy (2) Chest pain Current Visit: No Status: Acute Assessment and Plan: as listed above (3) CAD (coronary artery disease) Current Visit: No Status: Chronic Assessment and Plan: known hx of CAD will continue ASA, Plavix, BB, statin cardiology input appreciated (4) DVT prophylaxis Current Visit: Yes Status: Acute Assessment and Plan: Heparin SQ (5) Leucocytosis Current Visit: Yes Status: Acute Assessment and Plan: Likely reactive clinically asymptomatic No infectious etiology present that is contributing to leukocytosis will monitor off abx at this time - Time Spent with Patient Total time spent is greater than 50% in coordination of care (as documented) at patient's floor/unit and/or counseling patient: 25 - 35 minutes Plan of Care Discussed with: patient (patient/family/RN) Internal Medicine: Result - Labs CBC & Chem 7: 08/08/18 05:37 08/08/18 05:37 Labs: Short CBC 08/07/18 08/08/18 Range/Units 10:09 05:37 WBC 16.0 H 15.1 H (4.3-11.1) K/mcL Hgb 11.2 L D 11.3 L (11.5-15.4) g/dL Hct 34.7 L 35.2 L (35.3-44.9) % Plt Count 229 190 (140-400) K/mcL Neutrophils # 14.6 H 11.9 H (1.6-8.9) K/mcL BMP 08/07/18 08/08/18 10:09 05:37 Sodium 136 138 Potassium 3.9 3.8 Chloride 107 106 Carbon Dioxide 21 L 24 BUN 9 13 Creatinine 0.62 0.74 Glucose 148 H 99 Calcium 8.8 8.7 Urine 08/07/18 Range/Units 13:44 Urine Color Yellow (Yellow) Urine Clarity Clear (Clear) Urine pH 6.0 (5.0-8.0) pH Units Ur Specific [place] 1.008 L (1.010-1.025) Urine Protein Negative (Neg-Trace) mg/dL Urine Glucose (UA) Normal (Normal) mg/dL - ABG Interpretation ABG results: PT/INR, D-dimer PT 11.5 Seconds (9.4-12.1) 08/06/18 01:17 - Impressions Impressions Chest X-Ray 08/07/18 13:43 IMPRESSION: No acute process. D/ / Ramiro Elizabeth MD / Ramiro Elizabeth MD Interpreting Provider: Ramiro Elizabeth MD Consult Discharge Plan - Plan Referrals: Greyson Anderson DO [Partnered Physician] - (Follow up has been requested ) (2) Chest pain Qualifiers: Chest pain type: unspecified Qualified Code(s): R07.9 - Chest pain, unspe cified (3) CAD (coronary artery disease) Qualifiers: Associated angina: angina presence unspecified Qualified Code(s): I25.10 - Atherosclerotic heart disease of [place] coronary artery without angina pectoris (5) Leucocytosis Qualifiers: Leukocytosis type: unspecified Qualified Code(s): D72.829 - Elevated white blood cell count, unspecified
--- NOTE | 2018-08-08 12:13 | Cardiology Progress Note ---
Date of Encounter: 08/08/18 Time of Encounter: 09:45 Assessment and Plan (1) NSTEMI (non-ST elevated myocardial infarction) Current Visit: Yes Status: Acute Per cardiology: -Troponins negative, 0.19, 1.64, 3.66. -S/p [facility] yesterday with preliminary report reviewed with severe one vessel CAD, coronary angiography complicated by spiral dissection of RCA successfully stented with denominational of RYAN 3 flow, patent previous stent in OM. Collaterals from circ to PDA noted. -TTE with LVEF 55%, no wall motion abnormalities. -On asa, plavix, statin, BB. -Denies nausea, angina. Reports pleuritic chest pain. -Right groin access site with mild ecchymosis, no hematoma. -ASA, plavix uninterrupted for at least one year, patient states understanding. -Recommend patient ambulate in halls, if no angina with exertion, patient is stable from cardiology standpoint for discharge. (2) Chest pain Current Visit: No Status: Acute Per cardiology: -Admitted with typical angina. -Concern for vasospams also. -See NSTEMI Qualifiers: Chest pain type: unspecified Qualified Code(s): R07.9 - Chest pain, unspecified Discussion w patient/family: The assessment and plan as outlined above was discussed with the patient and family who expressed understanding and agreement. All questions were answered. T vasyl you for involving us in the care of your patient. Please call with any questions. Discussed and reviewed with Subjective Principal diagnosis: NSTEMI Interval history: Patient denies current angina. Reports some pleuritic chest pain. Objective Vital Signs, Last 4 Hours Temp Pulse Resp BP Pulse Ox 08/08/18 11:00 99.3 F 08/08/18 10:00 73 20 102/77 97 08/08/18 08:17 122 General: Conversant, No Apparent Distress HEENT: Atraumatic, Normocephaly, Mucus Membranes Moist Neck: No JVD, Normal carotid pulses Cardiac: Reg Rate and Rhythm, Normal S1 and S2, No Murmur Lungs: Normal Breath Sounds, No Wheeze, Rales, Rhonchi Neuro: Alert and responsive, No focal deficits noted Abdomen: Soft, Non-Tender Skin: No rashes noted on visualized skin, Other (RIght groin access site with mild ecchymosis, no hematoma. ) Musculoskeletal: No Chest Wall Tenderness Extremities: No Clubbing, No Cyanosis, No Edema, Normal Pulses Results 08/08/18 05:37 08/08/18 05:37 Lab Results Impressions Chest X-Ray 08/07/18 13:43 IMPRESSION: No acute process. D/ / Ramiro Elizabeth MD / Ramiro Elizabeth MD Interpreting Provider: Ramiro Elizabeth MD Active Medications Acetaminophen (Tylenol) 650 mg PO Q6HR PRN PRN Reason: Mild Pain Stop: 02/05/19 13:56 Aspirin (Aspirin) 81 mg PO DAILY [facility] Stop: 02/05/19 09:01 Last Admin: 08/08/18 08:47 Dose: 81 mg Atorvastatin Calcium (Lipitor) 40 mg PO HS [facility] Stop: 02/04/19 23:46 Last Admin: 08/07/18 19:51 Dose: 40 mg Clopidogrel Bisulfate (Plavix) 75 mg PO DAILY [facility] Stop: 02/06/19 09:01 Last Admin: 08/08/18 08:47 Dose: 75 mg Diltiazem HCl (Cardizem) 30 mg PO Q6HR [facility] Stop: 02/05/19 12:01 Last Admin: 08/08/18 11:08 Dose: 30 mg Heparin Sodium (Porcine) (Heparin) 5,000 unit SQ Q8HCO [facility] Stop: 02/07/19 22:01 Metoprolol Succinate (Toprol Xl) 50 mg PO HS [facility] Stop: 02/04/19 23:46 Naloxone HCl (Narcan) 0.4 mg IVP Q2M PRN PRN Reason: SEE COMMENTS Stop: 02/04/19 21:08 Nitroglycerin (Nitroglycerin) 0.4 mg SL Q5M PRN PRN Reason: Chest Pain Stop: 02/04/19 21:25 Last Admin: 08/06/18 04:12 Dose: 0.4 mg Omeprazole (Prilosec) 40 mg PO DAILY@0630 [facility]IXTO; Protocol Stop: 02/07/19 09:30 Last Admin: 08/08/18 11:08 Dose: 40 mg Ondansetron HCl (Zofran) 4 mg IVP Q6HR PRN; Protocol PRN Reason: Nausea Stop: 02/05/19 19:25 Last Admin: 08/08/18 08:47 Dose: 4 mg Promethazine HCl (Phenergan) 12.5 mg IVP Q6HR PRN PRN Reason: Nausea And Vomiting Stop: 02/06/19 13:25 Last Admin: 08/08/18 05:15 Dose: 12.5 mg Sertraline HCl (Zoloft) 100 mg PO HS [facility] Stop: 02/05/19 21:01 Last Admin: 08/07/18 19:51 Dose: 100 mg Laboratory Tests 08/08/18 08/08/18 05:37 05:37 WBC 15.1 H Hgb 11.3 L Creatinine 0.74 - Imaging and Cardiology Chest Xray: report reviewed Echo: report reviewed Cardiac cath: report reviewed Consult Discharge Plan - Plan Referrals: Greyson Anderson DO [Partnered Physician] - (Follow up has been requested )
[2018-08-08] MEDS: Acetaminophen 325 MG TABLET PO PRN ×2 (13:50→20:59)
[2018-08-08] MEDS: *HR* Heparin 5,000 UNIT/ML VIAL SQ SCH (21:00)
[2018-08-09 04:51] LABS: Basophils % 0.2 %; Eosinophils % 0.2 %; Hematocrit 36.4 % (35.3-44.9); Hemoglobin 11.5 g/dL (11.5-15.4); Immature Granulocytes % 0.4 % (0-4); Lymphocytes % 15.6 %; Mean Corpuscular HGB Conc 31.6 g/dL (31.6-35.5); Mean Corpuscular Volume 88.8 fL (83.0-100.0); Monocytes # 1.3 K/mcL (0.0-1.3); Monocytes % 10.2 %; Neutrophils # 9.2 K/mcL (1.6-8.9); Platelet Count 197 K/mcL (140-400); Segmented Neutrophils % 73.4 %
[2018-08-09] MEDS ORDERED: 0.9 % Sodium Chloride 1,000 ML IVC ONE (04:57)
[2018-08-09 05:10] LABS: BUN/Creatinine Ratio 18 (6-26); Blood Urea Nitrogen 12 mg/dL (6-20); Calcium 8.6 mg/dL (8.6-10.3); Carbon Dioxide 25 mEq/L (23-29); Chloride 106 mEq/L (98-107); Glucose 93 mg/dL (70-105); Osmolality,Calculated 285 (280-300); Potassium 3.4 mEq/L (3.5-5.1); Sodium 138 mEq/L (136-145); eGFR For Non-African Americans > 60 (> 60)
[2018-08-09] MEDS: *HR* Promethazine 25 MG/ML VIAL IVP PRN (05:57)
[2018-08-09] MEDS: *HR* Heparin 5,000 UNIT/ML VIAL SQ SCH (05:58)
[2018-08-09 07:54] VITALS: BP 91/59
[2018-08-09] MEDS: Aspirin 81 MG TAB.CHEW PO SCH (08:47)
--- NOTE | 2018-08-09 11:06 | Discharge Summary ---
- NOTES TO OUTPATIENT PROVIDER Notes to Outpatient Provider: Please closely monitor BP. Pt instructed to hold Metoprolol for SBP<100. Orders not resulted at time of discharge: Pending orders 08/06/18 11:32 CL Cardiac Catheterization [CL] Routine 08/07/18 06:00 ECG 12 lead ECG [ECG] AM 0600 Date of Encounter: 08/09/18 Time of Encounter: 11:00 - Discharge Diagnosis (1) NSTEMI (non-ST elevated myocardial infarction) Priority: Primary Status: Acute (2) Chest pain Priority: Primary Status: Resolved Qualifiers: Chest pain type: unspecified Qualified Code(s): R07.9 - Chest pain, unspecified (3) CAD (coronary artery disease) Priority: Secondary Status: Chronic Qualifiers: Associated angina: angina presence unspecified Qualified Code(s): I25.10 - Atherosclerotic heart disease of [place] coronary artery without angina pectoris (4) DVT prophylaxis Priority: Secondary Status: Acute (5) Leucocytosis Priority: Secondary Status: Acute Qualifiers: Leukocytosis type: unspecified Qualified Code(s): D72.829 - Elevated white blood cell count, unspecified Hospital course: Ms. Byrne is a 42 year old female with PMH of CAD s/p PCI in 2016, HLD, depression, anxiety, HTN who was admitted for NSTEMI. Pt underwent LHC and was found to have severe one vessel disease requiring PCI. Pt tolerated the procedure well. She is seen and examined on the day of discharge. Pt is started on Aspirin, Plavix, statin, beta meagan. Pt is noted to have labile BP readings due to which her BB dose has been on hold. Despite pt's hypotension, she has remained clinically asymptomatic. She is ambulating the halls without any discomfort. Pt is instructed to closely monitor her BP at home and hold metoprolol for SBP<100. Pt is currently chest pain free and medically stable for discharge to home with outpatient follow up with PCP and cardiology. Pt was noted to have hypokalemia on the day of discharge, K was supplemented. Pt and family(present at bedside) demonstrate understanding of the diagnosis and agree with the discharge care and plan. All questions were answered. Discharge discussed with: patient, family, nurse, case management - Time Spent with Patient Total time spent providing and/or coordinating discharge services: 32 minutes - Discharge Medications Prescriptions: New Clopidogrel [Plavix] 75 mg PO DAILY #30 tablet Omeprazole [PriLOSEC] 40 mg PO DAILY@0630 #30 capsule.dr Vital Cholecalciferol (Vitamin D3) [Vitamin D3] 1,000 unit PO DAILY Atorvastatin [Lipitor] 40 mg PO HS #30 tablet Aspirin Enteric Coated [Aspirin EC] 81 mg PO HS SUMAtriptan Succinate [Imitrex] 100 mg PO Q2H PRN PRN Reason: Migraine Headache Nitroglycerin [Nitrostat] 0.4 mg SL Q5M PRN PRN Reason: Chest Pain Sertraline [Zoloft] 100 mg PO HS Tramadol HCl [Ultram] 50 mg PO Q8H PRN PRN Reason: Pain Cholecalciferol (Vitamin D3) [Vitamin D3] 50,000 unit PO QWEEK Baclofen [Lioresal] 10 mg PO DAILY Metoprolol Succinate [Toprol Xl] 50 mg PO HS #0 Home Medications: Cholecalciferol (Vitamin D3) [Vitamin D3] 1,000 unit PO DAILY 02/13/15 [History] Atorvastatin [Lipitor] 40 mg PO HS #30 tablet 04/30/15 [Rx] Aspirin Enteric Coated [Aspirin EC] 81 mg PO HS 09/23/15 [History] SUMAtriptan Succinate [Imitrex] 100 mg PO Q2H PRN 09/29/15 [History] Nitroglycerin [Nitrostat] 0.4 mg SL Q5M PRN 10/05/16 [History] Sertraline [Zoloft] 100 mg PO HS 10/27/17 [History] Tramadol HCl [Ultram] 50 mg PO Q8H PRN 10/27/17 [History] Cholecalciferol (Vitamin D3) [Vitamin D3] 50,000 unit PO QWEEK 08/05/18 [History] Baclofen [Lioresal] 10 mg PO DAILY 08/07/18 [History] Clopidogrel [Plavix] 75 mg PO DAILY #30 tablet 08/09/18 [Rx] Metoprolol Succinate [Toprol Xl] 50 mg PO HS #0 08/09/18 [Rx] Omeprazole [PriLOSEC] 40 mg PO DAILY@0630 #30 capsule. 08/09/18 [Rx] Allergies/Adverse Reactions: Allergy/AdvReac Type Severity Reaction Status Date / Time Iodinated Contrast- Oral and Allergy Mild Hives Verified 10/05/16 07:56 IV Dye [Iodinated Contrast Media - IV Dye] povidone-iodine Allergy Mild Hives Verified 10/05/16 07:56 [From Betadine] soap [From Betadine] Allergy Mild Hives Verified 10/05/16 07:56 Macrolide Antibiotics Allergy Unknown unknown Verified 10/05/16 07:56 chlorhexidine Allergy Hives Verified 10/05/16 07:56 [From Hibiclens] iodine AdvReac Mild Gastrointestinal Verified 10/05/16 07:56 Upset ampicillin AdvReac Gastrointestinal Verified 08/05/18 17:17 Upset Erythromycin Base AdvReac Gastrointestinal Verified 08/05/18 17:17 Upset Date of admission: 08/06/18 10:56 Primary care physician: PCP NONE Consults: 08/05/18 21:24 Consult to Cardiac Rehabilitation-Phase1 [CONS] Routine Comment: Reason for Consult: AMI Call Completed: Yes Consult to Nurse Navigator [CONS] Routine Comment: 08/06/18 07:04 Consult to Cardiology [CONS] Routine Comment: Consulting Provider: Cardiology Zahraa Reason for Consult: NSTEMI Call Completed: No 08/06/18 13:53 Consult to Cardiac Rehabilitation-Phase1 [CONS] Routine Comment: Reason for Consult: post op PCI Call Completed: Yes Discharging clinician: Kari Rodriguez Anticipated date of discharge: 08/09/18 - Constitutional Vitals: Temp Pulse Resp BP Pulse Ox 98.0 F 75 16 91/59 99 08/09/18 07:51 08/09/18 07:51 08/09/18 07:51 08/09/18 07:51 08/09/18 07:51 Exam: General: No acute distress, AAO x 3, obese HEENT: EOMI,PERRLA, NC/AT, no scleral icterus Respiratory: Clear to auscultate bilaterally, no wheezing, no rales Cardiovascular: Regular, Rate, Rhythm, No murmurs GI: Soft, Non tender, non distended, normal bowel sounds Ext: No edema, no tenderness, positive pulses Neuro: AAO x 3, no focal deficits - Patient Status Disposition: Home, Self-Care Condition: Good Functional capacity at discharge: independent ambulation Overall status at discharge: patient is back to baseline - Discharge Instructions Follow Up With: Greyson Anderson DO [Partnered Physician] - (Follow up has been requested ) Additional Instructions: 1. Please follow up with your primary care physician within five days after your discharge from the hospital. 2. Please follow up with cardiology within one week after your discharge from the hospital. 3. Plavix 75mg once a day has been added to your home medications. Please continue to take Aspirin 81mg and Plavix 75mg once daily. 4. Please closely monitor your blood pressure at home. Please hold your home dose of Metoprolol for systolic blood pressure less than 100. Please take the log of blood pressure readings with you for your follow up appointment with your PCP and cardiology. 5. Please resume all your other home medications as prescribed by your PCP. - Diet and Activity Activity: resume usual activities as tolerated Diet: low fat, low cholesterol, low salt diet
== END 2018-08-09 11:50 | disposition home or self-care (01) | DRG 247 ==
LOC: 3BNU → SUATTDRO 08-06 10:56 → ICNU 08-06 13:43 → 2ANU 08-08 13:34
PROVIDERS: ADMIT Hospitalist; ATTEND Internal Medicine

== ENCOUNTER 2020-11-29 07:45 | Inpatient (IN) ==
[2020-11-29] MEDS ORDERED: Aspirin 81 MG TAB.CHEW PO ONE (07:58)
[2020-11-29] MEDS ORDERED: Nitroglycerin 0.4 MG TAB.SUBL SL PRN (07:58)
[2020-11-29 08:28] LABS: Basophils % 0.3 %; Eosinophils # 0.2 K/mcL (0.0-0.6); Eosinophils % 1.8 %; Hemoglobin 13.4 g/dL (11.5-15.4); Immature Granulocytes % 0.4 % (0-4); Lymphocytes # 1.3 K/mcL (0.6-4.6); Lymphocytes % 13.4 %; Mean Corpuscular HGB Conc 32.7 g/dL (31.6-35.5); Mean Corpuscular Hemoglobin 28.2 pg (28.0-33.3); Mean Corpuscular Volume 86.1 fL (83.0-100.0); Mean Platelet Volume 9.5 fL (9.4-12.4); Monocytes # 0.7 K/mcL (0.0-1.3); Monocytes % 6.6 %; Neutrophils # 7.8 K/mcL (1.6-8.9); Platelet Count 244 K/mcL (140-400); Red Blood Count 4.76 M/mcL (3.82-4.97); Red Cell Distribution Width 13.4 % (11.5-14.5); Segmented Neutrophils % 77.5 %
[2020-11-29] MEDS ORDERED: *HR* FentaNYL (PF) 100 MCG/2 ML VIAL IVP ONE ×2 (08:30→10:41)
[2020-11-29] MEDS ORDERED: Ondansetron 4 MG/2 ML VIAL IVP ONE (08:30)
[2020-11-29 08:35] LABS: INR 1.1; Prothrombin Time 12.5 Seconds (9.4-12.1)
[2020-11-29 08:44] LABS: BUN/Creatinine Ratio 19 (6-26); Blood Urea Nitrogen 14 mg/dL (6-20); Calcium 8.9 mg/dL (8.6-10.3); Carbon Dioxide 26 mEq/L (23-29); Chloride 105 mEq/L (98-107); Glucose 122 mg/dL (70-105); Osmolality,Calculated 286 (280-300); Potassium 3.6 mEq/L (3.5-5.1); Sodium 137 mEq/L (136-145); eGFR For African Americans > 60 (> 60); eGFR For Non-African Americans > 60 (> 60)
[2020-11-29 08:45] LABS: Troponin I < 0.03 ng/mL (< 0.04)
[2020-11-29] MEDS ORDERED: *HR* Heparin 5,000 UNIT/ML VIAL IVP ONE (09:14)
[2020-11-29] MEDS ORDERED: *HR* Heparin 5,000 UNIT/ML VIAL IVP PRN ×2 (09:14)
[2020-11-29] MEDS ORDERED: Naloxone 0.4 MG/ML INJ IVP PRN (09:41)
[2020-11-29] MEDS ORDERED: Metoprolol XL (24 HR) Succ 50 MG TAB.ER.24H PO SCH (09:45)
[2020-11-29 09:49] LABS: Heparin anti-factor XA UFH < 0.04 IU/mL (0.30-0.70)
[2020-11-29 09:50] LABS: INR 1.1; Prothrombin Time 12.4 Seconds (9.4-12.1)
[2020-11-29] MEDS: Heparin 25,000UNIT/250ML 1/2NS 25,000 UNIT/250 ML IV.SOLN IVC SCH (09:56)
[2020-11-29] MEDS: Acetaminophen 325 MG TABLET PO PRN (13:02)
[2020-11-29] MEDS ORDERED: Perflutren Lipid Microsphere 1.3 ML in 0.9 % Sodium Chloride 8.7 ML IVP PRN (14:25)
[2020-11-29] MEDS: Ondansetron 4 MG/2 ML VIAL IVP PRN (23:31)
[2020-11-30 02:10] LABS: Basophils % 0.4 %; Eosinophils # 0.2 K/mcL (0.0-0.6); Eosinophils % 1.8 %; Hematocrit 39.7 % (35.3-44.9); Hemoglobin 13.2 g/dL (11.5-15.4); Immature Granulocytes % 0.2 % (0-4); Lymphocytes # 2.8 K/mcL (0.6-4.6); Mean Corpuscular HGB Conc 33.2 g/dL (31.6-35.5); Mean Corpuscular Hemoglobin 28.5 pg (28.0-33.3); Mean Corpuscular Volume 85.7 fL (83.0-100.0); Mean Platelet Volume 9.3 fL (9.4-12.4); Monocytes # 0.9 K/mcL (0.0-1.3); Monocytes % 7.6 %; Neutrophils # 7.4 K/mcL (1.6-8.9); Platelet Count 236 K/mcL (140-400); Red Blood Count 4.63 M/mcL (3.82-4.97); Red Cell Distribution Width 13.5 % (11.5-14.5); White Blood Count 11.3 K/mcL (4.3-11.1)
[2020-11-30 02:35] LABS: BUN/Creatinine Ratio 15 (6-26); Blood Urea Nitrogen 11 mg/dL (6-20); Calcium 8.9 mg/dL (8.6-10.3); Carbon Dioxide 24 mEq/L (23-29); Chloride 105 mEq/L (98-107); Chol/HDL Ratio 3.7 (0-4.9); Cholesterol 129 mg/dL (< 200); Glucose 93 mg/dL (70-105); HDL Cholesterol 35 mg/dL (40-59); LDL Cholesterol,Calculated 55 mg/dL (< 100); Osmolality,Calculated 285 (280-300); Potassium 3.4 mEq/L (3.5-5.1); Sodium 138 mEq/L (136-145); Triglycerides 194 mg/dL (< 150); Troponin I 1.85 ng/mL (< 0.04); eGFR For African Americans > 60 (> 60); eGFR For Non-African Americans > 60 (> 60)
[2020-11-30 02:48] LABS: Estimated Average Glucose 114 mg/dl; Hemoglobin A1C 5.6 %
[2020-11-30] MEDS: Aspirin Enteric Coated 81 MG Tablet PO SCH (08:11)
[2020-11-30] MEDS: Metoprolol XL (24 HR) Succ 50 MG TAB.ER.24H PO SCH (08:11)
[2020-11-30] MEDS: Heparin 25,000UNIT/250ML 1/2NS 25,000 UNIT/250 ML IV.SOLN IVC SCH (08:12)
[2020-11-30] MEDS ORDERED: SUMAtriptan succinate 50 MG TABLET PO PRN (12:31)
[2020-11-30] MEDS: Isosorbide MONOnitrate (24 HR) 30 MG TAB.ER.24H PO SCH (14:00)
[2020-11-30] MEDS: Ondansetron 4 MG/2 ML VIAL IVP PRN (18:52)
[2020-11-30] MEDS: Acetaminophen 325 MG TABLET PO PRN (18:54)
[2020-11-30] MEDS: predniSONE 20 MG TABLET PO SCH (21:24)
[2020-11-30] MEDS: Potassium Citrate 10 MEQ TABLET.ER PO SCH (21:25)
[2020-12-01 06:39] LABS: Basophils % 0.1 %; Hematocrit 39.2 % (35.3-44.9); Hemoglobin 12.9 g/dL (11.5-15.4); Immature Granulocytes % 0.5 % (0-4); Lymphocytes # 0.7 K/mcL (0.6-4.6); Lymphocytes % 7.6 %; Mean Corpuscular HGB Conc 32.9 g/dL (31.6-35.5); Mean Corpuscular Hemoglobin 28.2 pg (28.0-33.3); Mean Corpuscular Volume 85.8 fL (83.0-100.0); Mean Platelet Volume 9.3 fL (9.4-12.4); Monocytes # 0.1 K/mcL (0.0-1.3); Monocytes % 0.5 %; Neutrophils # 8.6 K/mcL (1.6-8.9); Platelet Count 261 K/mcL (140-400); Red Blood Count 4.57 M/mcL (3.82-4.97); Red Cell Distribution Width 13.2 % (11.5-14.5); Segmented Neutrophils % 91.3 %; White Blood Count 9.4 K/mcL (4.3-11.1)
[2020-12-01] MEDS: Heparin 25,000UNIT/250ML 1/2NS 25,000 UNIT/250 ML IV.SOLN IVC SCH (06:54)
[2020-12-01 06:58] LABS: BUN/Creatinine Ratio 22 (6-26); Blood Urea Nitrogen 18 mg/dL (6-20); Calcium 9.5 mg/dL (8.6-10.3); Carbon Dioxide 26 mEq/L (23-29); Chloride 102 mEq/L (98-107); Glucose 157 mg/dL (70-105); Osmolality,Calculated 287 (280-300); Potassium 3.7 mEq/L (3.5-5.1); Sodium 136 mEq/L (136-145); eGFR For African Americans > 60 (> 60); eGFR For Non-African Americans > 60 (> 60)
[2020-12-01] MEDS: Metoprolol XL (24 HR) Succ 50 MG TAB.ER.24H PO SCH (08:20)
[2020-12-01] MEDS: Isosorbide MONOnitrate (24 HR) 30 MG TAB.ER.24H PO SCH (08:20)
[2020-12-01] MEDS: Potassium Citrate 10 MEQ TABLET.ER PO SCH (08:20)
[2020-12-01] MEDS: predniSONE 20 MG TABLET PO SCH (08:20)
[2020-12-01] MEDS: Aspirin Enteric Coated 81 MG Tablet PO SCH (08:20)
[2020-12-01] MEDS ORDERED: Fluticasone Propionate Nasal 50 MCG/SPRAY BOTTLE NS SCH (09:00)
[2020-12-01 10:24] VITALS: O2SAT 93
[2020-12-01 13:45] VITALS: BP 99/55; PULSE 75; TEMP 98.2
[2020-12-02] MEDS ORDERED: DilTIAZem CD (24hr) 240 MG CAP.ER.24H PO SCH (09:00)
== END 2020-12-01 16:18 | disposition home or self-care (01) | DRG 282 ==
LOC: EMEROOARM 07:45 → 3BNU 07:45 → 2NNU 15:31 → 3ANU 11-30 13:46
PROVIDERS: ADMIT Internal Medicine; ATTEND Internal Medicine